=== PATIENT | female | born 1945 | race Caucasian/White ===

== ENCOUNTER 2016-06-12 13:41 | Inpatient (IN) | payer OTHER, MEDICARE ==
[~2016-06-12] VITALS: Ht 152.4 cm; Wt 40.0 kg
[~2016-06-12 13:41] MED LIST: DEPA250T2 PO; FLUO-1 PO; GLUCTAB PO; HALO1TAB25 PO
--- NOTE | 2016-06-12 13:48 | PD ---
HPI Chief Complaint: BA/Psych Time Seen by Provider: 13:48 Travel History International Travel<30 days: No Contact w/Intl Traveler<30days: No Traveled to known affect area: No PFSH Past Medical History Cancer: No Cardiovascular Problems: No Diabetes: Yes Endocrine: Yes Genitourinary: No Immune Disorder: No Implanted Vascular Access Dvce: No Musculoskeletal: No Neurologic: No Psychiatric: Yes (previous Tx) Reproductive: No Respiratory: No Schizophrenia: Yes Menopausal: Yes Past Surgical History Other Surgery: No Social History Alcohol Use: No Tobacco Use: No Substance Use: No Allergies-Medications (Allergen,Severity, Reaction): Coded Allergies: No Known Allergies (Unverified , 11/09/15) Per spouse. Reported Meds & Prescriptions Reported Meds & Active Scripts Active Reported Prozac (Fluoxetine HCl) 10 Mg Cap 10 Mg PO DAILY Haldol (Haloperidol) 2 Mg Tab 2 Mg PO BID Depakote 250 mg (Divalproex Sodium) 250 Mg Tab 500 Mg PO BID Metformin (Metformin HCl) 500 Mg Tab 500 Mg PO BIDPC Data Data Orders Complete Blood Count With Diff (06/12/16 13:53) Comprehensive Metabolic Panel (06/12/16 13:53) Urinalysis - C+S If Indicated (06/12/16 13:53) Electrocardiogram (06/12/16 13:53) Psych Screen (06/12/16 13:53) Drug Screen, Random Urine (06/12/16 13:53) Alcohol (Ethanol) (06/12/16 13:53) Ct Brain W/O Iv Contrast(Rout) (06/12/16 ) Karan May Jun 12, 2016 13:48
[2016-06-12 13:56] VITALS: BP 136/98; PULSE 110; PULSE 111; RESP 16; TEMP 97.5; O2SAT 97
--- NOTE | 2016-06-12 14:16 | PD ---
HPI . Alves Act Chief Complaint: Medical Clearance Time Seen by Provider: 13:48 Travel History International Travel<30 days: No Contact w/Intl Traveler<30days: No Traveled to known affect area: No History of Present Illness HPI Patient was brought to us by law enforcement under the Alves Act. She is not able to provide any history. She was reportedly found roaming the streets. She had been incontinent of urine. The police found her and took her to a psychiatric facility. She was not appropriate for their level of care and was subsequently sent here. PFSH Past Medical History Cancer: No Cardiovascular Problems: No Diabetes: Yes Endocrine: Yes Genitourinary: No Immune Disorder: No Implanted Vascular Access Dvce: No Musculoskeletal: No Neurologic: No Psychiatric: Yes (previous Tx) Reproductive: No Respiratory: No Schizophrenia: Yes ?: Not Menopausal: Yes Past Surgical History Other Surgery: No Social History Alcohol Use: No Tobacco Use: No Substance Use: No Allergies-Medications (Allergen,Severity, Reaction): Coded Allergies: No Known Allergies (Unverified , 06/12/16) Per spouse. Reported Meds & Prescriptions Reported Meds & Active Scripts Active Reported Prozac (Fluoxetine HCl) 10 Mg Cap 10 Mg PO DAILY Haldol (Haloperidol) 2 Mg Tab 2 Mg PO BID Depakote 250 mg (Divalproex Sodium) 250 Mg Tab 500 Mg PO BID Metformin (Metformin HCl) 500 Mg Tab 500 Mg PO BIDPC Review of Systems ROS Limitations: Psychotic, Language Barrier Physical Exam Narrative GENERAL: Elderly, Malian-speaking woman who does not appear to be in any acute distress. She is very thin. SKIN: Warm and dry. HEAD: Atraumatic. Normocephalic. EYES: Pupils equal and round. ENT: No nasal bleeding or discharge. Mucous membranes pink and moist. NECK: Trachea midline. Neck is supple. CARDIOVASCULAR: Regular rhythm, tachycardic rate. RESPIRATORY: No accessory muscle use. Lungs are clear with full air movement. GASTROINTESTINAL: Abdomen soft, non-tender, nondistended. MUSCULOSKELETAL: No obvious deformities. No edema. NEUROLOGICAL: Awake and alert. No obvious cranial nerve deficits. Motor grossly within normal limits. She speaks Malian. PSYCHIATRIC: Unable to evaluate due to language barrier. Data Data Last Documented VS Vital Signs Date Time Temp Pulse Resp B/P Pulse Ox O2 Delivery O2 Flow Rate FiO2 06/12/16 13:56 97.5 111 16 136/98 97 Room Air Orders Complete Blood Count With Diff (06/12/16 13:53) Comprehensive Metabolic Panel (06/12/16 13:53) Urinalysis - C+S If Indicated (06/12/16 13:53) Electrocardiogram (06/12/16 13:53) Psych Screen (06/12/16 13:53) Drug Screen, Random Urine (06/12/16 13:53) Alcohol (Ethanol) (06/12/16 13:53) Ct Brain W/O Iv Contrast(Rout) (06/12/16 ) Lipase (06/12/16 15:19) Sodium Chlor 0.9% 1000 Ml Inj (Ns 1000 M (06/12/16 15:30) Bedside Glucose WILLIE.AC&HS (06/12/16 15:19) Cath For Specimen (06/12/16 15:33) Urine Culture (06/12/16 15:25) Labs Laboratory Tests Test 06/12/16 06/12/16 14:25 15:25 White Blood Count 9.9 TH/MM3 Red Blood Count 5.21 MIL/MM3 Hemoglobin 16.2 GM/DL Hematocrit 48.6 % Mean Corpuscular Volume 93.2 FL Mean Corpuscular Hemoglobin 31.0 PG Mean Corpuscular Hemoglobin 33.3 % Concent Red Cell Distribution Width 13.4 % Platelet Count 251 TH/MM3 Mean Platelet Volume 9.3 FL Neutrophils (%) (Auto) 74.3 % Lymphocytes (%) (Auto) 18.9 % Monocytes (%) (Auto) 6.4 % Eosinophils (%) (Auto) 0.1 % Basophils (%) (Auto) 0.3 % Neutrophils # (Auto) 7.3 TH/MM3 Lymphocytes # (Auto) 1.9 TH/MM3 Monocytes # (Auto) 0.6 TH/MM3 Eosinophils # (Auto) 0.0 TH/MM3 Basophils # (Auto) 0.0 TH/MM3 CBC Comment DIFF FINAL Differential Comment Sodium Level 140 MEQ/L Potassium Level 4.8 MEQ/L Chloride Level 106 MEQ/L Carbon Dioxide Level 25.6 MEQ/L Anion Gap 8 MEQ/L Blood Urea Nitrogen 49 MG/DL Creatinine 1.27 MG/DL Estimat Glomerular Filtration 41 ML/MIN Rate Random Glucose 439 MG/DL Calcium Level 9.8 MG/DL Total Bilirubin 0.8 MG/DL Aspartate Amino Transf 46 U/L (AST/SGOT) Alanine Aminotransferase 152 U/L (ALT/SGPT) Alkaline Phosphatase 133 U/L Total Protein 8.3 GM/DL Albumin 3.8 GM/DL Lipase 404 U/L Ethyl Alcohol Level LESS THAN 3 MG/DL Urine Color YELLOW Urine Turbidity HAZY Urine pH 5.5 Urine Specific [place] 1.031 Urine Protein 30 mg/dL Urine Glucose (UA) 1000 mg/dL Urine Ketones 10 mg/dL Urine Occult Blood NEG Urine Nitrite NEG Urine Bilirubin NEG Urine Urobilinogen LESS THAN 2.0 MG/DL Urine Leukocyte Esterase SMALL Urine RBC 1 /hpf Urine WBC 5 /hpf Urine Squamous Epithelial 1 /hpf Cells Urine Bacteria MOD /hpf Urine Hyaline Casts 1 /lpf Microscopic Urinalysis Comment CULTURE INDICATED Urine Opiates Screen NEG Urine Barbiturates Screen NEG Urine Amphetamines Screen NEG Urine Benzodiazepines Screen NEG Urine Cocaine Screen NEG Urine Cannabinoids Screen NEG MDM Medical Decision Making Medical Screen Exam Complete: Yes Emergency Medical Condition: Yes Interpretation(s) EKG shows sinus tachycardia with a rate of 109. She does not have any old EKGs for comparison. She has right atrial enlargement, left atrial enlargement, left axis deviation and a left ventricular hypertrophy. Differential Diagnosis Differential diagnosis of altered mental status includes but is not limited to infection, electrolyte abnormality, neurological event, intoxication, psychosis. Narrative Course Patient presents via law enforcement for evaluation of altered mental status. She does have a psychiatric history. However, because of her age, she will be evaluated for possible head injury or urinary tract infection. CBC & BMP Diagram 06/12/16 14:25 UA shows moderate bacteria, small leukocyte esterase. This was a catheterized sample. This patient is not going to be medically clear for psychiatric admission. I have consulted with the resident service for admission. Last Impressions Head CT 06/12/16 0000 Signed Impressions: Service Date/Time: Sunday, June 12, 2016 14:33 - CONCLUSION: Unremarkable exam for age. David Senior MD She will be given IV fluids for the elevated sugar and the ELYSIA. Attempts have been made to contact some family without success. We do not know whether or not she has been recently compliant with her medications. Diagnosis Primary Impression: Hyperglycemia Additional Impressions: Acute kidney injury UTI (urinary tract infection) Qualified Code: N30.00 - Acute cystitis without hematuria Admitting Information Admitting Physician Requests: Admit Condition: Stable Kirstie Palm MD Jun 12, 2016 14:16
[2016-06-12 14:39] LABS: AUTOMATED NEUTROPHIL # 7.3 TH/MM3 (1.8-7.7); BASOPHIL % 0.3 % (0.0-2.0); EOSINOPHIL % 0.1 % (0.0-4.0); HEMATOCRIT 48.6 % (35.0-46.0); HEMO FLAGS DIFF FINAL; LYMPH % 18.9 % (9.0-44.0); LYMPHOCYTE # 1.9 TH/MM3 (1.0-4.8); MEAN CELL VOLUME 93.2 FL (80.0-100.0); MEAN CORPUSCULAR HGB CONC 33.3 % (32.0-36.0); MONO % 6.4 % (0.0-8.0); NEUT % 74.3 % (16.0-70.0); PLATELET COUNT 251 TH/MM3 (150-450); RED BLOOD COUNT 5.21 MIL/MM3 (4.00-5.30); RED CELL DISTRIBUTION WIDTH 13.4 % (11.6-17.2); WHITE BLOOD COUNT 9.9 TH/MM3 (4.0-11.0)
--- NOTE | 2016-06-12 14:42 | RADRPT ---
EXAM DATE/TIME: 06/12/2016 14:33 [facility] COMPARISON: No previous studies available for comparison. INDICATIONS : Altered mental status RADIATION DOSE: 26.93 CTDIvol (mGy) MEDICAL HISTORY : Diabetes mellitus type 1. SURGICAL HISTORY : None. ENCOUNTER: Initial ACUITY: 1 day PAIN SCALE: LOCATION: cranial TECHNIQUE: Multiple contiguous axial images were obtained of the head. Using automated exposure control and adj ustment of the mA and/or kV according to patient size, radiation dose was kept as low as reasonably a chievable to obtain optimal diagnostic quality images. FINDINGS: CEREBRUM: The ventricles are normal for age. No evidence of midline shift, mass lesion, hemorrhage or acute in farction. No extra-axial fluid collections are seen. POSTERIOR FOSSA: The cerebellum and brainstem are intact. The 4th ventricle is midline. The cerebellopontine angle i s unremarkable. EXTRACRANIAL: The visualized portion of the orbits is intact. SKULL: The calvaria is intact. No evidence of skull fracture. The patient is edentulous. CONCLUSION: Unremarkable exam for age. David Senior MD on June 12, 2016 at 14:40 Board Certified Radiologist. This report was verified electronically.
[2016-06-12 15:00] VITALS: PULSE 101; RESP 20; O2SAT 100
[2016-06-12 15:07] LABS: ALKALINE PHOSPHATASE 133 U/L (45-117); ALT (GPT) 152 U/L (10-53); ANION GAP 8 MEQ/L (5-15); AST (GOT) 46 U/L (15-37); BICARBONATE 25.6 MEQ/L (21.0-32.0); BLOOD UREA NITROGEN 49 MG/DL (7-18); CHLORIDE 106 MEQ/L (98-107); GLOMERULAR FILTRATION RATE 41 ML/MIN (>89); POTASSIUM 4.8 MEQ/L (3.5-5.1); SODIUM (NA) 140 MEQ/L (136-145); TOTAL BILIRUBIN ADULT 0.8 MG/DL (0.2-1.0)
[2016-06-12] MEDS ORDERED: SODIUM CHLOR 0.9% 1000 ML INJ 1,000 ML IV ONE (15:30)
[2016-06-12 15:54] LABS: BACTERIA, URINE MOD /hpf; BLOOD, URINE NEG (NEG); COMMENT (UR) CULTURE INDICATED; CULTURE IF INDICATED CULTURE INDICATED; GLUCOSE,URINE 1000 mg/dL (NEG); HYALINE CAST, URINE 1 /lpf (RARE); KETONE, URINE 10 mg/dL (NEG); NITRITE,URINE NEG (NEG); PH, URINE 5.5 (5.0-8.5); SQUAMOUS EPITHELIAL CELL URINE 1 /hpf (0-5); URINE COLOR YELLOW (YELLW/STRAW)
[2016-06-12 16:00] VITALS: BP 161/81; PULSE 100; RESP 16; O2SAT 100
[2016-06-12 16:03] LABS: AMPHETAMINE, URINE NEG (NEG); BARBITURATES, URINE NEG (NEG)
[2016-06-12 16:04] LABS: COCAINE, URINE NEG (NEG)
[2016-06-12] MEDS ORDERED: cefTRIAXone INJ 1,000 MG in SODIUM CHLORIDE 0.9% INJ 100 ML IV ONE (16:45)
[2016-06-12 17:00] VITALS: BP 180/80; PULSE 97; RESP 15; O2SAT 100
--- NOTE | 2016-06-12 17:48 | HHI.HP ---
HPI Service Family Medicine Primary Care Physician Unknown Admission Diagnosis hypoglycemia, UTI,ELYSIA Diagnoses: International Travel<30 Days: No Contact w/Intl Traveler<30days: No Known Affected Area: No History of Present Illness Patient is a 71-year-old female Gambian speaking patient with past medical history significant for psychosis NOS and diabetes who presents to [facility] via law enforcement under a Alves act. She was reportedly brought to [facility] with concerns of acute psychosis; however, due to acute nature of illness, she was subsequently referred to our hospital for eventual psychiatric admission. She is not accompanied by her . Video mixing engineer was attempted; however, patient did not participate in discussion aside from shaking head to deny any intention of hurting herself or others and denying any pain. Patient was unable to provide any other details regarding her medical condition or recent history. Review of EMR shows that the patient has previously been admitted for psychosis. She appears to have consistently been on Depakote 500 mg twice a day. Is unclear whether not the patient has continued to take this medication. It also appears that she was recently prescribed fluoxetine. She also has a history of diabetes for which review of EMR reveal she was on metformin. Her blood glucose has previously been well controlled with low-dose insulin sliding scale during prior inpatient psychiatric admissions. (Gee Pierce MD R3) Review of Systems ROS Limitations: Uncooperative, Psychotic (Gee Pierce MD R3) Past Family Social History Past Medical History Psychosis NOS Diabetes Past Surgical History Unable to provide history Reported Medications Reported Meds & Active Scripts Active Reported Prozac (Fluoxetine HCl) 10 Mg Cap 10 Mg PO DAILY Haldol (Haloperidol) 2 Mg Tab 2 Mg PO BID [id number] 250 Mg Tab 500 Mg PO BID Glucophage XR 24 HR (Metformin HCl) 500 Mg Tab 500 Mg PO BIDPC (Gee Pierce MD R3) Allergies: Coded Allergies: No Known Allergies (Unverified , 06/12/16) Per spouse. Family History Unable to provide history Social History Unable to provide history (Gee Pierce MD R3) Physical Exam Vital Signs Vital Signs Date Time Temp Pulse Resp B/P Pulse Ox O2 Delivery O2 Flow Rate FiO2 06/12/16 17:00 97 15 180/80 100 Room Air 06/12/16 15:00 101 20 100 Room Air 06/12/16 13:56 97.5 111 16 136/98 97 Room Air 06/12/16 13:56 97.5 110 16 136/98 Physical Exam GENERAL: Frail, disheveled appearing, woman laying in ER bed in no acute distress SKIN: No rashes, ecchymoses or lesions. Cool and dry. HEAD: Atraumatic. Normocephalic. No temporal or scalp tenderness. EYES: Pupils equal round and reactive. Extraocular motions intact. No scleral icterus. No injection or drainage. ENT: Nose without bleeding, purulent drainage or septal hematoma. Throat without erythema, tonsillar hypertrophy or exudate. Uvula midline. Airway patent. NECK: Trachea midline. No lymphadenopathy. Supple, nontender, no meningeal signs. CARDIOVASCULAR: Regular rate and rhythm without murmurs, gallops, or rubs. RESPIRATORY: Clear to auscultation. Breath sounds equal bilaterally. No wheezes , rales, or rhonchi. GASTROINTESTINAL: Abdomen soft, non-tender, nondistended. No hepato-splenomegaly , or palpable masses. No guarding. MUSCULOSKELETAL: Extremities without clubbing, cyanosis, or edema. No joint tenderness, effusion, or edema noted. No calf tenderness. MAEWD. NEUROLOGICAL: Awake and alert. Gambian speaking only. Cranial nerves II through XII intact. Motor and sensory grossly within normal limits. Five out of 5 muscle strength in all muscle groups. PSYCH: Speaking unrecognizable sentences. Appears to be oriented only to self. Denies SI/HI. Unable to assess VH/AH. Laboratory Laboratory Tests Test 06/12/16 06/12/16 14:25 15:25 White Blood Count 9.9 Red Blood Count 5.21 Hemoglobin 16.2 Hematocrit 48.6 Mean Corpuscular Volume 93.2 Mean Corpuscular Hemoglobin 31.0 Mean Corpuscular Hemoglobin 33.3 Concent Red Cell Distribution Width 13.4 Platelet Count 251 Mean Platelet Volume 9.3 Neutrophils (%) (Auto) 74.3 Lymphocytes (%) (Auto) 18.9 Monocytes (%) (Auto) 6.4 Eosinophils (%) (Auto) 0.1 Basophils (%) (Auto) 0.3 Neutrophils # (Auto) 7.3 Lymphocytes # (Auto) 1.9 Monocytes # (Auto) 0.6 Eosinophils # (Auto) 0.0 Basophils # (Auto) 0.0 CBC Comment DIFF FINAL Differential Comment Sodium Level 140 Potassium Level 4.8 Chloride Level 106 Carbon Dioxide Level 25.6 Anion Gap 8 Blood Urea Nitrogen 49 Creatinine 1.27 Estimat Glomerular Filtration 41 Rate Random Glucose 439 Calcium Level 9.8 Total Bilirubin 0.8 Aspartate Amino Transf 46 (AST/SGOT) Alanine Aminotransferase 152 (ALT/SGPT) Alkaline Phosphatase 133 Total Protein 8.3 Albumin 3.8 Lipase 404 Ethyl Alcohol Level LESS THAN 3 Urine Color YELLOW Urine Turbidity HAZY Urine pH 5.5 Urine Specific [place] 1.031 Urine Protein 30 Urine Glucose (UA) 1000 Urine Ketones 10 Urine Occult Blood NEG Urine Nitrite NEG Urine Bilirubin NEG Urine Urobilinogen LESS THAN 2.0 Urine Leukocyte Esterase SMALL Urine RBC 1 Urine WBC 5 Urine Squamous Epithelial 1 Cells Urine Bacteria MOD Urine Hyaline Casts 1 Microscopic Urinalysis Comment CULTURE INDICATED Urine Opiates Screen NEG Urine Barbiturates Screen NEG Urine Amphetamines Screen NEG Urine Benzodiazepines Screen NEG Urine Cocaine Screen NEG Urine Cannabinoids Screen NEG Date/Time Procedure Status Source Growth 06/12/16 15:25 Urine Culture Received Urine Clean Catch Pending (Gee Pierce MD R3) Result Diagram: 06/12/16 1425 06/12/16 1425 Imaging Last Impressions Head CT 06/12/16 0000 Signed Impressions: Service Date/Time: Sunday, June 12, 2016 14:33 - CONCLUSION: Unremarkable exam for age. David Senior MD (Gee Pierce MD R3) Septic Shock Reassessment Heart: Other (tachycardic) Lungs: Clear Skin: Warm Peripheral Pulses: Bounding Right Radial Bounding Left Radial Capillary Refill: Brisk (Gee Pierce MD R3) Assessment and Plan Assessment and Plan Patient is a 71-year-old female Gambian speaking patient with past medical history significant for diabetes and psychosis NOS requiring prior inpatient psychiatric admissions who presents under a Alves act with concerns for psychosis. Found to also have a UTI and significantly elevated blood sugar. Code Status Full code Discussed Condition With wdw Dr. Kevin MD (Gee Pierce MD R3) Attending Attestation The patient has been seen and examined. The chart and all resident notes have been reviewed. I agree that inpatient care is appropriate and that a two midnight stay is expected for the reasons documented in the resident history and physical. I have discussed this with the resident and certify the resident s order for inpatient admission. (Kirstie Brown MD) Problem List: (1) Schizophrenia Status: Acute Plan: Patient with history of psychosis NOS. Unclear if she has been taking her medication. Currently alert but uncooperative with exam. No focal neurologic findings. Normal head CT reassuring. Will proceed with following plan: * Admit to inpatient * Psychiatric consultation * Continue home Depakote 500 mg twice a day * Continue home Prozac 10 mg daily * Haldol 0.5 mg 3 times a day as needed for agitation/psychosis * 1-1 sitter (2) Diabetes mellitus, type 2 Status: Acute Plan: Blood sugar on admission 439. Blood sugar appears to previously been well-controlled with metformin or low-dose sliding scale when inpatient. * Begin with low-dose sliding scale * Hold home metformin until acute evaluation is completed * Consider adding additional long-acting insulin if clinically indicated (3) UTI (urinary tract infection) Status: Acute Plan: Urine shows small leukocyte esterase with moderate amount of bacteria. Patient denies any pain of any kind. Currently afebrile. * Begin Rocephin 1 mg daily * We'll follow culture sensitivities (4) Acute kidney injury Status: Acute Plan: Creatinine 1.27 today. Previous baseline appears to be <1. Likely due to dehydration. Patient is status post bolus of fluid in ED. * Begin maintenance fluids IV NS at 80 ML/HR * Repeat BMP in a.m. (5) Elevated liver enzymes Status: Acute Plan: AST 46, ALT 152, ALP 133 with lipase of 404. Abdominal examination is benign. Patient has a history of elevated AST and ALP in October. * Recommend initial evaluation with hepatitis profile * If patient develops abdominal pain, low threshold to obtain abdominal imaging (6) HTN (hypertension) Status: Acute Plan: BP elevated on admission to 180/80. No documented history of hypertension, though review of EMR reveals elevated pressures back in October. * Clonidine 0.1 mg as needed for BP greater than 160/90 * Consider long-acting antihypertensive if blood pressures remain consistently elevated (7) FEN/PPX Status: Acute Plan: FEN: - IV NS @ 80ml/hr - Monitor replace electrolytes as needed - Diabetic diet PPX: - Bilateral lower extremity SCDs - Zofran prn for nausea (Gee Pierce MD R3) Physician Certification 2 Midnight Certification Type: Admission for Inpatient Services Order for Inpatient Services The services are ordered in accordance with Medicare regulations or non- Medicare payer requirements, as applicable. In the case of services not specified as inpatient-only, they are appropriately provided as inpatient services in accordance with the 2-midnight benchmark. Estimated LOS (days): 2 days is the estimated time the patient will need to remain in the hospital, assuming treatment plan goals are met and no additional complications. Post-Hospital Plan: Other (specify) (Inpatient psych) (Gee Pierce MD R3) Problem Qualifiers (1) UTI (urinary tract infection): Qualified Code: N30.00 - Acute cystitis without hematuria Gee Pierce MD R3 Jun 12, 2016 17:48 Kirstie Brown MD Jun 13, 2016 15:51
[2016-06-12 18:00] VITALS: BP 168/79; PULSE 100; RESP 18; O2SAT 100
[2016-06-12] MEDS ORDERED: ACETAMINOPHEN 325 MG TAB PO PRN (18:00)
[2016-06-12] MEDS ORDERED: cloNIDine HCL 0.1 MG TAB PO PRN (18:00)
[2016-06-12] MEDS ORDERED: ONDANSETRON HCL 4 MG/2 ML VIAL IVP PRN (18:00)
[2016-06-12] MEDS ORDERED: NALOXONE HCL 0.4 MG/ML AMP IV PRN (18:00)
[2016-06-12] MEDS ORDERED: SODIUM CHLORIDE 0.9% FLUSH 5 ML FLUSH FLUSH PRN (18:00)
[2016-06-12] MEDS ORDERED: HALOPERIDOL 0.5 MG TAB PO PRN (18:00)
[2016-06-12] MEDS ORDERED: GLUCAGON 1 MG/ML VIAL OTHER PRN (18:00)
[2016-06-12] MEDS ORDERED: DEXTROSE 50% IN WATER 50 ML VIAL(D50) IV PUSH PRN (18:00)
[2016-06-12] MEDS: SODIUM CHLOR 0.9% 1000 ML INJ 1,000 ML IV SCH (20:00)
[2016-06-12] MEDS: DIVALPROEX DR 500 MG TABEC PO SCH (20:00)
[2016-06-12] MEDS: INSULIN ASPART SUPPLEMENTAL SCALE SQ SCH (20:00)
[2016-06-12] MEDS: SODIUM CHLORIDE 0.9% FLUSH 5 ML FLUSH FLUSH SCH (20:00)
[2016-06-12 23:00] VITALS: BP 160/72; PULSE 98; RESP 18; O2SAT 100
[2016-06-13 02:47] VITALS: BP 176/81; PULSE 93; RESP 18; TEMP 97.6; O2SAT 98
[2016-06-13 05:57] VITALS: BP 166/78; PULSE 90; RESP 18; TEMP 96.8; O2SAT 94
[2016-06-13] MEDS: SODIUM CHLOR 0.9% 1000 ML INJ 1,000 ML IV SCH (06:24)
[2016-06-13] MEDS: INSULIN ASPART SUPPLEMENTAL SCALE SQ SCH ×2 (06:25→11:00)
[2016-06-13 07:03] LABS: AUTOMATED NEUTROPHIL # 6.1 TH/MM3 (1.8-7.7); BASOPHIL % 0.1 % (0.0-2.0); EOSINOPHIL % 0.5 % (0.0-4.0); HEMATOCRIT 38.7 % (35.0-46.0); HEMO FLAGS DIFF FINAL; LYMPH % 23.4 % (9.0-44.0); MEAN CELL VOLUME 91.3 FL (80.0-100.0); MEAN CORPUSCULAR HEMOGLOBIN 31.3 PG (27.0-34.0); MEAN CORPUSCULAR HGB CONC 34.2 % (32.0-36.0); MONO % 5.1 % (0.0-8.0); NEUT % 70.9 % (16.0-70.0); PLATELET COUNT 202 TH/MM3 (150-450); RED BLOOD COUNT 4.24 MIL/MM3 (4.00-5.30); RED CELL DISTRIBUTION WIDTH 13.5 % (11.6-17.2); WHITE BLOOD COUNT 8.6 TH/MM3 (4.0-11.0)
[2016-06-13 07:30] LABS: BICARBONATE 25.4 MEQ/L (21.0-32.0); POTASSIUM 3.9 MEQ/L (3.5-5.1)
[2016-06-13 07:46] VITALS: BP 162/78; PULSE 90; RESP 20; TEMP 98.1; O2SAT 97
[2016-06-13] MEDS: FLUoxetine HCL 10 MG CAP PO SCH ×2 (09:00→10:55)
[2016-06-13] MEDS: DIVALPROEX DR 500 MG TABEC PO SCH ×2 (09:00→10:55)
[2016-06-13] MEDS ORDERED: cefTRIAXone INJ 1,000 MG in SODIUM CHLORIDE 0.9% INJ 100 ML IV SCH (09:00)
[2016-06-13] MEDS: SODIUM CHLORIDE 0.9% FLUSH 5 ML FLUSH FLUSH SCH (09:00)
--- NOTE | 2016-06-13 09:16 | HHI.FPPN ---
Subjective Subjective Patient seen and examined. Case reviewed and discussed Please refer to resident H&P for further details regarding HPI, ROS, PMH, SrugHx , FH and SocHx In summary, patient is a 71yoFwith a history of DM and psychosis presenting under Alves Act. Patient is Azeri-speaking. Overnight, glucose control improved. Patient is seen resting in her hospital bed, she offers no complaints but is speaking nonsensically in Azeri. [facility] Objective Objective Last Impressions Head CT 06/12/16 0000 Signed Impressions: Service Date/Time: Sunday, June 12, 2016 14:33 - CONCLUSION: Unremarkable exam for age. David Senior MD Laboratory Tests - Abnormals Test 06/12/16 06/12/16 06/13/16 14:25 15:25 06:13 Hemoglobin 16.2 GM/DL Hematocrit 48.6 % Neutrophils (%) (Auto) 74.3 % 70.9 % Blood Urea Nitrogen 49 MG/DL 32 MG/DL Creatinine 1.27 MG/DL Estimat Glomerular Filtration 41 ML/MIN 68 ML/MIN Rate Random Glucose 439 MG/DL 228 MG/DL Aspartate Amino Transf 46 U/L (AST/SGOT) Alanine Aminotransferase 152 U/L (ALT/SGPT) Alkaline Phosphatase 133 U/L Total Protein 8.3 GM/DL Lipase 404 U/L Urine Turbidity HAZY Urine Protein 30 mg/dL Urine Glucose (UA) 1000 mg/dL Urine Ketones 10 mg/dL Urine Leukocyte Esterase SMALL Urine Bacteria MOD /hpf Sodium Level 148 MEQ/L Chloride Level 115 MEQ/L Vital Signs 06/12/16 06/12/16 06/12/16 06/12/16 13:56 13:56 15:00 16:00 Temp 97.5 97.5 Pulse 110 111 101 100 Resp 16 16 20 16 B/P 136/98 136/98 161/81 Pulse Ox 97 100 100 O2 Delivery Room Air Room Air Room Air 06/12/16 06/12/16 06/12/16 06/13/16 17:00 18:00 23:00 02:47 Temp 97.6 Pulse 97 100 98 93 Resp 15 18 18 18 B/P 180/80 168/79 160/72 176/81 Pulse Ox 100 100 100 98 O2 Delivery Room Air Room Air Room Air 06/13/16 06/13/16 05:57 07:46 Temp 96.8 98.1 Pulse 90 90 Resp 18 20 B/P 166/78 162/78 Pulse Ox 94 97 INTAKE & OUTPUT 06/13/16 07:00 Intake Total 1200 ml Balance 1200 ml Physical exam GENERAL: Thin frail female resting in bed, awake and alert, confused SKIN: Warm and dry. No rashes HEAD: Normocephalic. Atraumatic EYES: No scleral icterus. No injection or drainage. ENT: OP clear. MMM NECK: Supple, trachea midline. No JVD or lymphadenopathy. CARDIOVASCULAR: Regular rate and rhythm without audible murmurs, gallops, or rubs. RESPIRATORY: Breath sounds equal and clear to auscultation bilaterally. No accessory muscle use. GASTROINTESTINAL: Abdomen soft, non-tender, nondistended. Thin. MUSCULOSKELETAL: No cyanosis, or edema. No calf tenderness BACK: Nontender without obvious deformity. No CVA tenderness. Neuro: Confused, awake. Moves all extremities well Assessment Assessment 71-year-old female admitted with Alves act, psychosis Hyperglycemia Transaminitis Uncontrolled diabetes Acute kidney injury Dehydration Hypernatremia UTI PLAN PLAN Psychiatric consultation, likely will be transferred to [facility] psych unit Empiric antibiotic therapy with Rocephin UA with urine culture, follow up culture results Trend Accu-Cheks, sliding scale coverage as needed Will consider resuming home metformin Trend BMP and LFTs If LFTs stay elevated, consider right upper quadrant ultrasound IV fluid resuscitation for dehydration Further antipsychotic management per psych Patient seen and examined. Case reviewed and discussed with the resident team. Agree with plan of care as discussed with me and documented in the resident note. Addendum: Patient seen by Dr. Giles, psychiatry will transfer patient to [facility] psych unit. Please feel free to consult family medicine service once arrived to [facility] psych unit for assistance with medical management. Kirstie Brown MD Jun 13, 2016 09:16
[2016-06-13 10:21] LABS: ALT (GPT) 126 U/L (10-53); ANION GAP 10 MEQ/L (5-15); AST (GOT) 63 U/L (15-37); BICARBONATE 23.2 MEQ/L (21.0-32.0); BLOOD UREA NITROGEN 32 MG/DL (7-18); CHLORIDE 117 MEQ/L (98-107); GLOMERULAR FILTRATION RATE 69 ML/MIN (>89); POTASSIUM 3.9 MEQ/L (3.5-5.1); SODIUM (NA) 150 MEQ/L (136-145)
[2016-06-13 10:23] LABS: ALKALINE PHOSPHATASE 96 U/L (45-117); TOTAL BILIRUBIN ADULT 0.6 MG/DL (0.2-1.0)
--- NOTE | 2016-06-13 10:48 | EKG ---
Date Performed: 06/12/2016 Time Performed: 14:13:32 PTAGE: 71 years EKG: SINUS TACHYCARDIA RIGHT ATRIAL ABNORMALITY LEFT VENTRICULAR HYPERTROPHY WITH REPOLARIZATION CHANGES POOR R-WAVE PROGRESSION ABNORMAL ECG NO PREVIOUS TRACING DOCTOR: Richard Clifton Interpretating Date/Time 06/13/2016 10:46:46
[2016-06-13 11:01] VITALS: BP 150/90
[2016-06-13 11:34] VITALS: BP 167/86; PULSE 88; RESP 22; TEMP 98.9; O2SAT 95
== END 2016-06-13 12:55 | DRG 638 ==
LOC: NEPA 13:41 → NEDA 17:02 → NEDH 21:02 → NEPHCDU 06-13 02:30
PROVIDERS: ADMIT Family Medicine; ATTEND Family Medicine
DX: E11.65 Type 2 diabetes mellitus with hyperglycemia (principal); E87.0 Hyperosmolality and hypernatremia; N17.9 Acute kidney failure, unspecified; N30.00 Acute cystitis without hematuria; E86.0 Dehydration; I10 Essential (primary) hypertension; F20.9 Schizophrenia, unspecified
CPT/HCPCS: 70450; 80048; 80053; 80074; 80164; 80307; 80320; 81001; 82948; 83690; 85025; 87077; 87086; 87186; 93005; 96360; J0696; J1815; J7030; P9612

== ENCOUNTER 2016-06-13 10:00 | Inpatient (IN) | payer OTHER, MEDICARE ==
[2016-06-13 12:30] VITALS: BP 190/84; PULSE 99; RESP 16; TEMP 98.2; O2SAT 98
[2016-06-13] MEDS ORDERED: LORazepam 2 MG/ML VIAL IM PRN ×2 (13:45)
[2016-06-13] MEDS ORDERED: risperiDONE 1 MG TAB PO SCH (13:45)
[2016-06-13] MEDS ORDERED: MAGNESIUM HYDROXIDE SUSP 30 ML CUP PO PRN ×2 (13:45→14:45)
[2016-06-13] MEDS ORDERED: LORazepam 1 MG TAB PO SCH (14:00)
--- NOTE | 2016-06-13 14:18 | HHI.HP ---
Provisional Diagnosis Admission Date Jun 13, 2016 at 10:00 [place] I. Unspecified psychosis, R/O schizophrenia acute exacerbation [place] II. Deferred [place] III. HTN, DM [place] IV. Poor family support [place] V. 35 Certification of Person's Competence To Provide Express and Informed Consent I have personally examined Marcie Catalan , a person being served at [facility] on, Jun 13, 2016 14:02. Express and informed consent means consent voluntarily given in writing, by a competent person, after sufficient explanation and disclosure of the subject matter involved to enable the person to make a knowing and willful decision without any element of force, fraud, deceit, duress, or other form of constraint or coercion. This person is 18 years of age or older, is not now known to be incompetent to consent to treatment with a guardian advocate, and does not have a health care surrogate or proxy currently making medical treatment decisions. I have found this person to be one of the following: [] Competent to provide express and informed consent, as defined above, for voluntary admission to this facility and is competent to provide express and informed consent for treatment. He/she has the consistent capacity to make well reasoned, willful, and knowing decisions concerning his or her medical or mental health treatment. The person fully and consistently understands the purpose of the admission for examination/placement and is fully capable of personally exercising all rights assured [place] [X] Incompetent to provide express and informed consent to voluntary admission, and this is incompetent to provide express and informed consent to treatment. The person must be transferred to involuntary status and a petition for a guardian advocate filed with the Circuit Court. [] Refusing to provide express and informed consent to voluntary admission but is competent to provide express and informed consent for treatment. The person must be discharged or transferred to involuntary status. Form shall be completed within 24 hours of a person's arrival at the receiving facility and filed in the clinical record of each person: 1. Admitted on a voluntary basis 2. Permitted to provide express and informed consent to his/her own treatment 3. Allowed to transfer from involuntary to voluntary status 4. Prior to permitting a person to consent to his or her own treatment after having been previously found incompetent to consent to treatment. History of Present Illness Capacity: Lacks Capacity HPI The patient is a 71 year-old woman, Anguillan speaking, , apparently domiciled with her in [place], with past psychiatric history of for psychosis NOS, Schizophrenia, one documented hospitalization at [facility] in 2013 due to psychosis, she was to stabilize with Depakote and Risperdal then, one ER visit in October 2015, but discharged next day, medical history of diabetes or hypertension, who presents to [facility] via law enforcement under a Alves act. She was reportedly brought to [facility] with concerns of acute psychosis; however, due to acute nature of illness, she was subsequently referred to our hospital for eventual psychiatric admission. Patient was hold in the observation area of the ER due to UTI, increased blood pressure, elevated white blood cells, elevated blood sugar, ELYSIA and altered mental status. She had a brain CT scan without acute abnormal findings at this moment. Patient was evaluated in the med/psych unit alone with nurse in charge Riddhi, no collateral information available at this moment. On psychiatric evaluation patient is non-cooperative, she seems to be internally preoccupied, guarded, paranoid, she refuses to answer the questions and seems to be selectively mute. However, in the few occasions she decided to answer question she voices unintelligible words that don't make any sense either in Burkinan or Anguillan. She did say "my is crazy crazy crazy" and also she states in Anguillan "I don't like your shows, they are ugly". In spite of persistent reassurance and redirection patient refuses to cooperate. She is not agitated, no hyperactive, she does not seems to be catatonic, she has an irritable and angry affect, rather than flat and restricted. Tried to contact her for collateral information, he was called twice to the documented in the charge telephone number, but the person to answer the telephone and stated that this is a wrong number. Review of Systems ROS Limitations: Uncooperative Other The patient does not have any somatic complaints Past Psych History Psychological trauma history Unknown Substance Abuse History Drugs/Alcohol past 12 months Unknown and this time, based in previous records she doesn't have any history of drug and alcohol use disorder Past Family Social History Coded Allergies: No Known Allergies (Unverified , 06/12/16) Per spouse. Reported Medications Fluoxetine HCl (Prozac)10 Mg Cap10 Mg PO DAILY 11/09/15 Haloperidol (Haldol)2 Mg Tab2 Mg PO BID 10/03/13 [id number] M1 250 Mg [id number] Mg PO BID 08/11/13 Metformin XR 24 HR (Glucophage XR 24 HR)500 Mg [id number] Mg PO BIDPC 08/11/13 Current Medications Medications (Trade) Dose Ordered Sig/Dary Route Start Time Stop Time Status Last Admin (Ativan) 1 mg Q6H PRN PO 06/13/16 13:45 (Ativan Inj) 1 mg Q6H PRN IM 06/13/16 13:45 (Ativan) 0.5 mg Q12H PRN PO 06/13/16 13:45 (Ativan Inj) 0.5 mg Q12H PRN IM 06/13/16 13:45 (Tylenol) 650 mg Q4H PRN PO 06/13/16 13:45 (Milk Of Magnesia Liq) 30 ml DAILY PRN PO 06/13/16 13:45 (Mag-Al Plus Susp Liq) 30 ml Q6H PRN PO 06/13/16 13:45 (Ativan) 1 mg Q8HR PO 06/13/16 14:00 (risperDAL) 1 mg Q12HR PO 06/13/16 13:45 (Depakote Er) 500 mg BID PO 06/13/16 21:00 Family History Unknown Social History From previous record, The patient is from [place], she lives with her in [place], she is only Anguillan-speaking Mental Status Examination Patient is calm and cooperative for the assessment of mental status exam Speech: Other (mute) Assessment & Plan Problem List: (1) Schizophrenia Assessment & Plan: The patient is a 71 year-old woman, Anguillan speaking, , apparently domiciled with her in [place], with past psychiatric history of for psychosis NOS, Schizophrenia, one documented hospitalization at [facility] in 2013 due to psychosis, she was to stabilize with Depakote and Risperdal then, one ER visit in October 2015, but discharged next day, medical history of diabetes or hypertension, who presents to [facility] via law enforcement under a Alves act due to psychotic behavior. On psychiatric evaluation patient is non-cooperative, she is guarded , selectively mute, not providing any significant information for the psychiatric assessment at this moment. Unfortunately, No collateral information is available. The patient does not seems to be catatonic, she is definitely has negativism, but no rigidity, no echolalia, achopraxia, posturism , rigidity observed. In the few sentences that the patient voices she is disorganized, illogical and some neologisms are expressed. At this point is difficult to define if patient is psychotic, delirious, cognitively impaired or maybe is all at the same time. Patient meets criteria for involuntary psychiatric admission for safety and stabilization, she most probably will be unable to survive in the community in this condition. chute worker intervention to complete a psychosocial assessment and to try to get collateral information. Continue frequent reorientation, reassurance and redirection. Will consult hospitalist for underlying medical conditions and also will consult psychiatry for second opinion. We will start Risperdal 1 mg twice a day and Depakote 500 mg twice a day. Also would order Haldol 2 mg IM every 8 hours when necessary aggressive behavior and agitation. ICD Code: F20.9 Assessment & Plan Estimated LOS: days Problem Qualifiers (1) Schizophrenia: Qualified Code: F20.9 - Schizophrenia, unspecified type James Herbert MD Jun 13, 2016 14:18
[2016-06-13] MEDS ORDERED: cloNIDine HCL 0.1 MG TAB PO PRN (15:00)
[2016-06-13] MEDS ORDERED: GLUCAGON 1 MG/ML VIAL OTHER PRN (15:00)
[2016-06-13] MEDS ORDERED: DEXTROSE 50% IN WATER 50 ML VIAL(D50) IV PUSH PRN (15:00)
--- NOTE | 2016-06-13 15:56 | PD.CONS ---
HPI Service [facility] Consult Requested By Psychiatry team Reason for Consult Medical management Primary Care Physician Unknown Diagnoses: History of Present Illness Patient is a 71-year-old female with primary medical history of psychosis, diabetes who came into the hospital under Alves act. As per report, she was put to [facility] with concerns of acute psychosis, but due to acute nature of illness she was subsequently referred to our hospital for psychiatric admission. Unknown if patient is compliant with taking Depakote as she was previously seen for psychosis. Further work up revealed patient to have urinary tract infection and significantly elevated blood sugar. Patient is now admitted to inpatient medical psychiatric unit. Consulted for medical management. Patient seen today. Cuban speaking. Confuse and does not respond to questions and commands. Appears comfortable. Unable to provide any medical information. Review of Systems ROS Limitations: Poor Historian, Other (confuse) Past Family Social History Allergies: Coded Allergies: No Known Allergies (Unverified , 06/12/16) Per spouse. Past Medical History Chart reviewed Diabetes Psychosis Dementia Schizophrenia Past Surgical History Chart reviewed No surgical history Reported Medications Prozac (Fluoxetine HCl) 10 Mg Cap 10 Mg PO DAILY Haldol (Haloperidol) 2 Mg Tab 2 Mg PO BID [id number] M1 250 Mg Tab 500 Mg PO BID Glucophage XR 24 HR (Metformin HCl) 500 Mg Tab 500 Mg PO BIDPC Active Ordered Medications Current Medications Medications (Trade) Dose Ordered Sig/Dary Route Start Time Stop Time Status Last Admin (Ativan) 1 mg Q6H PRN PO 06/13/16 13:45 (Ativan Inj) 1 mg Q6H PRN IM 06/13/16 13:45 (Ativan) 0.5 mg Q12H PRN PO 06/13/16 13:45 (Ativan Inj) 0.5 mg Q12H PRN IM 06/13/16 13:45 (Tylenol) 650 mg Q4H PRN PO 06/13/16 13:45 (Mag-Al Plus Susp Liq) 30 ml Q6H PRN PO 06/13/16 13:45 (risperDAL) 1 mg Q12HR PO 06/13/16 13:45 Hold (Depakote Er) 500 mg BID PO 06/13/16 21:00 (Milk Of Magnesia Liq) 30 ml DAILY PRN PO 06/13/16 14:45 (D50w (Vial) Inj) 25 ml UNSCH PRN IV PUSH 06/13/16 15:00 (Glucagon Inj) 1 mg UNSCH PRN OTHER 06/13/16 15:00 (Bactrim Ds 800-160 Mg) 1 tab Q12HR PO 06/14/16 09:00 06/19/16 08:59 (Catapres) 0.1 mg Q6H PRN PO 06/13/16 15:00 Family History Unable to provide family history. Social History No report of alcohol use, Tobacco use, or Illicit drug use Physical Exam Physical Exam GENERAL: This is a thin elderly appearing, elderly patient, in no apparent distress. SKIN: No rashes, ecchymoses or lesions. Cool and dry. HEAD: Atraumatic. Normocephalic. No temporal or scalp tenderness. EYES: Pupils equal round and reactive. Extraocular motions intact. No scleral icterus. No injection or drainage. ENT: Nose without bleeding. Throat without erythema. Uvula midline. Airway patent. NECK: Trachea midline. No JVD or lymphadenopathy. Supple, nontender, no meningeal signs. CARDIOVASCULAR: Regular rate and rhythm without murmurs, gallops, or rubs. RESPIRATORY: Clear to auscultation. Breath sounds equal bilaterally. No wheezes , rales, or rhonchi. GASTROINTESTINAL: Abdomen soft, non-tender, nondistended. No hepato-splenomegaly , or palpable masses. No guarding. MUSCULOSKELETAL: Extremities without clubbing, cyanosis, or edema. No joint tenderness, effusion, or edema noted. No calf tenderness. Negative Homans sign bilaterally. NEUROLOGICAL: Awake and alert. Confuse. SZYMANSKI. Normal speech. Assessment and Plan Problem List: (1) Schizophrenia ICD Code: F20.9 Status: Acute (2) HTN (hypertension) ICD Code: I10 Status: Chronic (3) Acute kidney injury ICD Code: N17.9 Status: Acute (4) Elevated liver enzymes ICD Code: R74.8 Status: Acute (5) Diabetes mellitus, type 2 ICD Code: E11.9 Status: Chronic (6) UTI (urinary tract infection) ICD Code: N39.0 Status: Acute Assessment and Plan Patient is a 71-year-old female who came into the hospital under Alves act. As per report, she was put to [facility] with concerns of acute psychosis, she was subsequently referred to our hospital for psychiatric admission. Unknown if patient is compliant with taking Depakote as she was previously seen for psychosis. Patient is now admitted to inpatient medical psychiatric unit. Consulted for medical management. Dementia, schizophrenia, psychosis - management by psychiatry team DM 2 - patient previously on metformin 500 mg twice a day at home. Was not restarted secondary to acute kidney injury which is now resolving. However patient still continued risk for acidosis secondary to poor by mouth intake. - Continue insulin sliding scale. If unable to restart metformin may benefit from Januvia. - Monitor Accu-Cheks. Monitor for hypoglycemia. - Check hemoglobin A1c. Hypernatremia - possibly caused by IV fluid infusion. DC and S IV fluids. - Encourage by mouth intake - Recheck sodium tomorrow Transaminitis, elevated liver enzymes - history of elevated AST and ALT. Abdominal examination benign. Possibly chronic. - Hepatitis panel negative - Avoid hepatotoxins. - If worsening, imaging studies can be done. Elevated lipase - 404. - recheck in few days. Urinary tract infection - was started on Rocephin in inpatient. Follow-up cultures, pending - Switched to Bactrim end date 06/19/2016 - Encourage by mouth fluid intake HTN - elevated BP 150s to 160s, and clonidine when necessary. - Will start low-dose lisinopril 5mg daily DVT prop early ambulation Thank you for this consultation. We will follow patient with you. Written by Nina Cruz, acting as scribe for Dr. Hall on 06/13/16 at 17: 32. The documentation accurately reflects the work performed [id number] by me on at 19:25. Code Status Full code Discussed Condition With Patient, nursing Problem Qualifiers (1) Schizophrenia: Qualified Code: F20.9 - Schizophrenia, unspecified type Nina Nelson Jun 13, 2016 15:56 Anselmo Hall MD Jun 13, 2016 19:25
[2016-06-13] MEDS: INSULIN ASPART SUPPLEMENTAL SCALE SQ SCH ×2 (16:00→20:58)
[2016-06-13] MEDS ORDERED: LISINOPRIL 5 MG TAB PO SCH (18:00)
[2016-06-13 20:00] VITALS: BP 176/84; PULSE 102; RESP 18
[2016-06-13 20:05] VITALS: BP 190/84
[2016-06-13 23:45] VITALS: BP 176/84; PULSE 103; RESP 20
[2016-06-14] MEDS ORDERED: DEXTROSE 5% IN WATE 1000ML INJ 1,000 ML IV SCH (01:00)
[2016-06-14] MEDS ORDERED: ENALAPRILAT 2.5 MG/2 ML VIAL IV PUSH ONE (06:00)
[2016-06-14 06:01] VITALS: BP_SYST 193; BP_SYST 202; BP_DIAS 94; BP_DIAS 99; PULSE 113; RESP 17; TEMP 97.9; O2SAT 97
[2016-06-14] MEDS: INSULIN ASPART SUPPLEMENTAL SCALE SQ SCH ×5 (06:21→21:56)
[2016-06-14 06:31] VITALS: BP 167/78; PULSE 105; RESP 16; O2SAT 96
[2016-06-14 08:15] LABS: ALKALINE PHOSPHATASE 112 U/L (45-117); ALT (GPT) 122 U/L (10-53); ANION GAP 13 MEQ/L (5-15); AST (GOT) 60 U/L (15-37); BLOOD UREA NITROGEN 19 MG/DL (7-18); CHLORIDE 107 MEQ/L (98-107); CREATINE KINASE 56 U/L (26-192); GLOMERULAR FILTRATION RATE 70 ML/MIN (>89); HDL CHOLESTEROL 49.3 MG/DL (40.0-60.0); LDL CHOLESTEROL 146 MG/DL (0-99); POTASSIUM 3.1 MEQ/L (3.5-5.1); SODIUM (NA) 142 MEQ/L (136-145); TOTAL BILIRUBIN ADULT 0.9 MG/DL (0.2-1.0)
[2016-06-14] MEDS ORDERED: SULFAMETHOXAZOLE-TRIMETHOPRIM DS 800-160 MG TAB PO SCH (09:00)
[2016-06-14 09:45] VITALS: BP 96/55; PULSE 84; RESP 16; TEMP 97.3; O2SAT 97
[2016-06-14] MEDS ORDERED: POTASSIUM CHLORIDE 10 MEQ CONTROLLED RELEASE TAB PO ONE (10:00)
[2016-06-14] MEDS ORDERED: POTASSIUM CL 40 MEQ/30 ML LIQ UDC PO ONE (10:00)
[2016-06-14] MEDS ORDERED: POTASSIUM CHLORIDE 20 MEQ CONTROLLED RELEASE TAB PO ONE (10:00)
[2016-06-14] MEDS ORDERED: D5-1/2 NS + KCL 20 MEQ INJ 1,000 ML IV SCH (10:00)
[2016-06-14] MEDS ORDERED: SODIUM CHLOR 0.9% 250 ML INJ 250 ML IV PRN (10:00)
--- NOTE | 2016-06-14 11:41 | HHI.PR ---
Subjective Remarks I'll of visit dementia, psychosis, failure to thrive, UTI. Patient seen today. As per RN, patient was very agitated and restless this morning, banging her legs on the bed. She was given Ativan. Patient is sedated on exam. Patient also is not eating or drinking. She was started on IV fluids last night. Staff also states that they cannot contact patient's family members. Objective Vitals Vital Signs Date Time Temp Pulse Resp B/P Pulse Ox O2 Delivery O2 Flow Rate FiO2 06/14/16 09:45 97.3 84 16 96/55 97 06/14/16 06:31 105 16 167/78 96 06/14/16 06:01 97.9 113 17 202/94 97 193/99 06/13/16 23:45 103 20 176/84 06/13/16 20:05 190/84 06/13/16 12:30 98.2 99 16 190/84 98 I/O 06/13/16 06/13/16 06/13/16 06/14/16 06/14/16 06/14/16 07:00 15:00 23:00 07:00 15:00 23:00 Intake Total 1000 ml Balance 1000 ml Intake Oral 0 ml IV Total 1000 ml # Voids 4 # Bowel Movements 0 Result Diagram: 06/14/16 0735 Objective Remarks GENERAL: This is a thin elderly appearing, elderly patient, in no apparent distress. SKIN: No rashes, ecchymoses or lesions. Cool and dry. HEAD: Atraumatic. Normocephalic. No temporal or scalp tenderness. EYES: Extraocular motions intact. No scleral icterus. No injection or drainage. ENT: Nose without bleeding. Throat without erythema. Uvula midline. Airway patent. NECK: Trachea midline. No JVD or lymphadenopathy. Supple, nontender, no meningeal signs. CARDIOVASCULAR: Regular rate and rhythm without murmurs, gallops, or rubs. RESPIRATORY: Clear to auscultation. Breath sounds equal bilaterally. No wheezes , rales, or rhonchi. GASTROINTESTINAL: Abdomen soft, non-tender, nondistended. Active bowel sounds 4. MUSCULOSKELETAL: Extremities without clubbing, cyanosis, or edema. No joint tenderness, effusion, or edema noted. No calf tenderness. Negative Homans sign bilaterally. NEUROLOGICAL: Sedated. A/P Problem List: (1) Schizophrenia ICD Code: F20.9 Status: Acute (2) HTN (hypertension) ICD Code: I10 Status: Chronic (3) Acute kidney injury ICD Code: N17.9 Status: Acute (4) Elevated liver enzymes ICD Code: R74.8 Status: Acute (5) Diabetes mellitus, type 2 ICD Code: E11.9 Status: Chronic (6) UTI (urinary tract infection) ICD Code: N39.0 Status: Acute Assessment and Plan Patient is a 71-year-old female who came into the hospital under Alves act. As per report, she was put to [facility] with concerns of acute psychosis, she was subsequently referred to our hospital for psychiatric admission. Unknown if patient is compliant with taking Depakote as she was previously seen for psychosis. Patient is now admitted to inpatient medical psychiatric unit. Consulted for medical management. Dementia, schizophrenia, psychosis - management by psychiatry team DM 2 - patient previously on metformin 500 mg twice a day at home. Was not restarted secondary to acute kidney injury which is now resolving. However patient still continued risk for acidosis secondary to poor by mouth intake. - Continue insulin sliding scale. Patient is not eating. Continue with insulin sliding scale instead of restarting oral hypoglycemics. - Monitor Accu-Cheks. Monitor for hypoglycemia. - Check hemoglobin A1c. Hypernatremia - possibly caused by IV fluid infusion. DC NS IV fluids. Patient was started D5 IV, will change to D5 half NS +20 MEQ K+ - Encourage by mouth intake - Recheck sodium 142. Transaminitis, elevated liver enzymes - history of elevated AST and ALT. Abdominal examination benign. Possibly chronic. - Hepatitis panel negative - Avoid hepatotoxins. - If worsening, imaging studies can be done. Elevated lipase - 404. - recheck in few days. Urinary tract infection - was started on Rocephin in inpatient. Follow-up cultures, pending - Switched to Bactrim end date 06/19/2016. DC Bactrim from now as patient is not taking by mouth medications. Will start Rocephin 2 days - Encourage by mouth fluid intake HTN - elevated BP 150s to 160s, and clonidine when necessary. - Will start low-dose lisinopril 5mg daily. Patient is not taking anything by mouth. - Monitor BP trend Hyperlipidemia - ASCVD risk increase secondary to diabetes, hypertension. However, liver enzymes are elevated and patient right now has poor by mouth intake. - Will hold off on starting patient on statin medication. We will discuss with family members if they are available risk and benefits of medication use. DVT prop early ambulation Written by Nina Cruz, acting as scribe for Dr. Hall on 06/14/16 at 10:30. The documentation accurately reflects the work performed [id number] by me on at 18:55. Problem Qualifiers (1) Schizophrenia: Qualified Code: F20.9 - Schizophrenia, unspecified type Nina Nelson Jun 14, 2016 11:41 Anselmo Hall MD Jun 14, 2016 18:55
--- NOTE | 2016-06-14 14:48 | HHI.PYPN ---
Subjective Remarks Patient was seen today for psychiatric evaluation, patient was unable to provide significant at useful information to the reevaluation due to level of sedation, patient was recently medicated with Ativan due to agitation, but she continues to be internally preoccupied selectively mute. Review of Systems Other No significant changes since 06/13/2016 Objective Alert: Yes Geddes: Person Mood: Depressed, Other Affect: Flat Memory Intact: Comment (unable to assess ) Hallucinations: Other (unable to assess ) Delusions: No Delusion Type: Other (unable to assess ) Suicidal: Ideation (unable to assess ) Homicidal: Ideation (unable to assess ) Insight/Judgement poor Labs Test 06/14/16 07:35 Sodium Level 142 MEQ/L Potassium Level 3.1 MEQ/L Chloride Level 107 MEQ/L Carbon Dioxide Level 22.0 MEQ/L Anion Gap 13 MEQ/L Blood Urea Nitrogen 19 MG/DL Creatinine 0.80 MG/DL Estimat Glomerular Filtration 70 ML/MIN Rate Random Glucose 171 MG/DL Calcium Level 8.7 MG/DL Magnesium Level 2.0 MG/DL Total Bilirubin 0.9 MG/DL Aspartate Amino Transf 60 U/L (AST/SGOT) Alanine Aminotransferase 122 U/L (ALT/SGPT) Alkaline Phosphatase 112 U/L Total Creatine Kinase 56 U/L Total Protein 7.0 GM/DL Albumin 3.3 GM/DL Triglycerides Level 155 MG/DL Cholesterol Level 226 MG/DL LDL Cholesterol 146 MG/DL HDL Cholesterol 49.3 MG/DL Cholesterol/HDL Ratio 4.58 RATIO Vitals/IOs Vital Signs Date Time Temp Pulse Resp B/P Pulse Ox O2 Delivery O2 Flow Rate FiO2 06/14/16 09:45 97.3 84 16 96/55 97 Intake and Output 06/13/16 06/13/16 06/14/16 08:00 16:00 00:00 Intake Total 0 ml Balance 0 ml Assessment & Plan Problem List: (1) Schizophrenia ICD Code: F20.9 Assessment & Plan Estimated LOS: days Justification for Cont. Inpt. Patient is needs to continue psychiatric hospitalization for stabilization of psychotic symptoms Problem Qualifiers (1) Schizophrenia: Qualified Code: F20.9 - Schizophrenia, unspecified type James Herbert MD Jun 14, 2016 14:48
[2016-06-14 16:24] VITALS: BP 126/63; PULSE 92; RESP 16; TEMP 97.8; O2SAT 95
[2016-06-14 16:34] LABS: HEMOGLOBIN A1a 0.9 %; HEMOGLOBIN A1b 2.2 %; HEMOGLOBIN Ao 80.8 %; HEMOGLOBIN LA1C 2.3 %; HEMOGLOBIN P3 4.5 %
--- NOTE | 2016-06-14 17:07 | PD.CONS ---
Provisional Diagnosis Admission Date Jun 13, 2016 at 10:00 [place] I. 1. Unspecified schizophrenia Rule out component of catatonia [place] II. Deferred [place] V. GAF is 35 presently History of Present Illness Service Psychiatry Consult Requested By Dr. Herbert Reason for Consult Second opinion Primary Care Physician Unknown HPI From Dr. Herbert's H&P: The patient is a 71 year-old woman, Kazakh speaking, , apparently domiciled with her in [place], with past psychiatric history of for psychosis NOS, Schizophrenia, one documented hospitalization at [facility] in 2013 due to psychosis, she was to stabilize with Depakote and Risperdal then, one ER visit in October 2015, but discharged next day, medical history of diabetes or hypertension, who presents to [facility] via law enforcement under a Alves act. She was reportedly brought to [facility] with concerns of acute psychosis; however, due to acute nature of illness, she was subsequently referred to our hospital for eventual psychiatric admission. Patient was hold in the observation area of the ER due to UTI, increased blood pressure, elevated white blood cells, elevated blood sugar, ELYSIA and altered mental status. She had a brain CT scan without acute abnormal findings at this moment. Patient was evaluated in the med/psych unit alone with nurse in charge Riddhi, no collateral information available at this moment. On psychiatric evaluation patient is non-cooperative, she seems to be internally preoccupied, guarded, paranoid, she refuses to answer the questions and seems to be selectively mute. However, in the few occasions she decided to answer question she voices unintelligible words that don't make any sense either in Kyrgyz or Kazakh. She did say "my is crazy crazy crazy" and also she states in Kazakh "I don't like your shows, they are ugly". In spite of persistent reassurance and redirection patient refuses to cooperate. She is not agitated, no hyperactive, she does not seems to be catatonic, she has an irritable and angry affect, rather than flat and restricted. Tried to contact her for collateral information, he was called twice to the documented in the charge telephone number, but the person to answer the telephone and stated that this is a wrong number. On my examination today: Patient seen and examined. Chart reviewed. Case discussed with nursing staff. Per nursing staff, patient's mental status had been poor throughout the night. She reportedly received a dose of IM Ativan this morning and slept most of the day. Upon awakening this afternoon, the patient's mental status is reportedly much improved. She is alert and conversant in Kyrgyz. On my examination today, I do find the patient to be awake and alert. She does indeed appear to have good facility with Kyrgyz. She is fairly confused on my exam however, being oriented to person and hospital only. She denies audiovisual hallucinations but appears internally preoccupied. She describes her mood as "good." She denies any suicidal or homicidal ideation. Thought process seems fairly disorganized. Speech is rambling. Psychiatric interview remains somewhat limited. Past psychiatric history: Patient is unsure of her past psychiatric history. I do see that there is a chart history of psychosis with [address] Chicas. Family history: Patient unable to provide. Chemical dependency history: Patient says that she drinks in bed but she is apparently referring to the IV fluids that she is receiving. Toxicology and alcohol level were both negative on presentation here. Social history: Patient reports that she is with 7 children. Otherwise limited social history. Review of Systems ROS Limitations: Poor Historian Other No reported somatic complaints at this time. Past Family Social History Coded Allergies: No Known Allergies (Unverified , 06/12/16) Per spouse. Past Medical History See electronic medical record Reported Medications Fluoxetine HCl (Prozac)10 Mg Cap10 Mg PO DAILY 11/09/15 Haloperidol (Haldol)2 Mg Tab2 Mg PO BID 10/03/13 Divalproex Sodium 250 mg (Depakote 250 mg)250 Mg [id number] Mg PO BID 08/11/13 Metformin XR 24 HR (Glucophage XR 24 HR)500 Mg [id number] Mg PO BIDPC 08/11/13 Current Medications Medications (Trade) Dose Ordered Sig/Dary Route Start Time Stop Time Status Last Admin (Ativan) 1 mg Q6H PRN PO 06/13/16 13:45 (Ativan Inj) 1 mg Q6H PRN IM 06/13/16 13:45 06/14/16 07:50 (Ativan) 0.5 mg Q12H PRN PO 06/13/16 13:45 (Ativan Inj) 0.5 mg Q12H PRN IM 06/13/16 13:45 (Tylenol) 650 mg Q4H PRN PO 06/13/16 13:45 (Mag-Al Plus Susp Liq) 30 ml Q6H PRN PO 06/13/16 13:45 (risperDAL) 1 mg Q12HR PO 06/13/16 13:45 Hold (Depakote Er) 500 mg BID PO 06/13/16 21:00 Hold (Milk Of Magnesia Liq) 30 ml DAILY PRN PO 06/13/16 14:45 (D50w (Vial) Inj) 25 ml UNSCH PRN IV PUSH 06/13/16 15:00 (Glucagon Inj) 1 mg UNSCH PRN OTHER 06/13/16 15:00 (Bactrim Ds 800-160 Mg) 1 tab Q12HR PO 06/14/16 09:00 06/19/16 08:59 Clonidine 0.1 mg 0.1 mg Q6H PRN PO 06/13/16 15:00 Potassium Chloride/Dextrose/ Sod Cl 1,000 ml @ 42 mls/hr [id number] IV 06/14/16 10:00 06/14/16 15:03 (NS 250 ml Inj) 250 ml @ 250 mls/hr Q4H PRN IV 06/14/16 10:00 Patient's Strengths (min. 2) In a monitored setting. Verbally fluent. Physical Exam Physical examination completed by hospitalist loan consultant. On my examination today, patient is in hospital gown. She is thin and disheveled. She is edentulous. She is somewhat fidgety but without any evident tremors, dystonias or dyskinesias. Labs and vital signs reviewed: Vital Signs Vital Signs Date Time Temp Pulse Resp B/P Pulse Ox O2 Delivery O2 Flow Rate FiO2 06/14/16 16:24 97.8 92 16 126/63 95 I/O 06/13/16 06/13/16 06/14/16 08:00 16:00 00:00 Intake Total 0 ml Balance 0 ml Lab Results Item Value Date Time White Blood Count 8.3 TH/MM3 08/11/13 1630 Hemoglobin 14.3 GM/DL 08/11/13 1630 Platelet Count 216 TH/MM3 08/11/13 1630 Sodium Level 142 MEQ/L 06/14/16 0735 Potassium Level 3.1 MEQ/L L # 06/14/16 0735 Chloride Level 107 MEQ/L # 06/14/16 0735 Carbon Dioxide Level 22.0 MEQ/L 06/14/16 0735 Blood Urea Nitrogen 19 MG/DL H # 06/14/16 0735 Creatinine 0.80 MG/DL 06/14/16 0735 Aspartate Amino Transf (AST/SGOT) 60 U/L H 06/14/16 0735 Alanine Aminotransferase (ALT/SGPT) 122 U/L H 06/14/16 0735 Alkaline Phosphatase 112 U/L 06/14/16 0735 Free Thyroxine 1.32 NG/DL 08/13/13 0915 Thyroid Stimulating Hormone 3rd Gen 1.970 uIU/ML 08/13/13 0915 Mental Status Examination Patient is in hospital gown. She is thin and disheveled. She is awake and alert and oriented to person and hospital only. No motoric abnormalities noted. Speech is rambling. Mood is good and affect is somewhat childlike. Thought process disorganized. No ambar delusional material. Denies audiovisual hallucinations but appears somewhat internally preoccupied. Denies suicidal or homicidal ideation but it is not clear that she is reliable to contract for safety. Insight and judgment seem poor. Speech: Other (mute) Assessment & Plan Problem List: (1) Schizophrenia ICD Code: F20.9 Assessment & Plan Given the circumstances of patient's initial presentation here in her presentation on my examination today, I concur with Dr. Herbert that the patient meets criteria for involuntary psychiatric hospitalization under the Alves act. Further care as per Dr. Herbert. Thank you very much for this consultation. Signing off. Request HC Surrog/Guard Advoc?: Yes Problem Qualifiers (1) Schizophrenia: Qualified Code: F20.9 - Schizophrenia, unspecified type Dean Dunn MD Jun 14, 2016 17:06
[2016-06-14] MEDS: cefTRIAXone INJ 1,000 MG in SODIUM CHLORIDE 0.9% INJ 100 ML IV SCH (18:18)
[2016-06-14 18:34] VITALS: BP 126/63; PULSE 92; RESP 16; TEMP 97.8; O2SAT 95
[2016-06-14] MEDS: DIVALPROEX SODIUM E.R. 500 MG TAB PO SCH (21:06)
[2016-06-14] MEDS: risperiDONE 1 MG TAB PO SCH (21:06)
[2016-06-14] MEDS: LORazepam 0.5 MG TAB PO PRN (21:57)
[2016-06-14] MEDS: 1/2 NS + KCL 20 MEQ INJ 1,000 ML IV SCH (23:39)
[2016-06-15 06:02] VITALS: BP 107/65; PULSE 108; RESP 14; TEMP 97.6; O2SAT 96
[2016-06-15] MEDS: INSULIN ASPART SUPPLEMENTAL SCALE SQ SCH ×4 (06:08→20:33)
[2016-06-15] MEDS ORDERED: LISI2.5T3 PO (06:36)
[2016-06-15] MEDS ORDERED: OMEP20TA PO (06:36)
[2016-06-15 07:01] LABS: BICARBONATE 25.2 MEQ/L (21.0-32.0); POTASSIUM 3.4 MEQ/L (3.5-5.1)
[2016-06-15] MEDS: risperiDONE 1 MG TAB PO SCH ×2 (08:57→20:45)
[2016-06-15] MEDS: DIVALPROEX SODIUM E.R. 500 MG TAB PO SCH ×2 (08:57→20:44)
[2016-06-15] MEDS: 1/2 NS + KCL 20 MEQ INJ 1,000 ML IV SCH (08:58)
--- NOTE | 2016-06-15 09:19 | HHI.PR ---
Subjective Remarks Follow up visit dementia, psychosis, failure to thrive, UTI. Patient seen today. Awake and alert. Speaking in Libyan, follows commands with some confusion. Denies pain and discomfort. Denies SOB/ dyspnea. Denies chest pain , palpitations, headaches, dizziness. Denies fevers, chills, n/v/d. Objective Vitals Vital Signs Date Time Temp Pulse Resp B/P Pulse Ox O2 Delivery O2 Flow Rate FiO2 06/15/16 06:02 97.6 108 14 107/65 96 06/14/16 18:34 97.8 92 16 126/63 95 06/14/16 16:24 97.8 92 16 126/63 95 06/14/16 09:45 97.3 84 16 96/55 97 I/O 06/14/16 06/14/16 06/14/16 06/15/16 06/15/16 06/15/16 07:00 15:00 23:00 07:00 15:00 23:00 Intake Total 1000 ml 0 ml 1200 ml 378 ml 480 ml Balance 1000 ml 0 ml 1200 ml 378 ml 480 ml Intake Oral 0 ml 0 ml 1200 ml 480 ml IV Total 1000 ml 378 ml # Voids 4 2 1 # Bowel Movements 0 Result Diagram: 06/15/16612 Objective Remarks GENERAL: This is a thin elderly appearing, elderly patient, in no apparent distress. SKIN: No rashes, ecchymoses or lesions. Cool and dry. HEAD: Atraumatic. Normocephalic. No temporal or scalp tenderness. EYES: Extraocular motions intact. No scleral icterus. No injection or drainage. ENT: Nose without bleeding. Throat without erythema. Uvula midline. Airway patent. NECK: Trachea midline. No JVD or lymphadenopathy. Supple, nontender, no meningeal signs. CARDIOVASCULAR: Regular rate and rhythm without murmurs, gallops, or rubs. RESPIRATORY: Clear to auscultation. Breath sounds equal bilaterally. No wheezes , rales, or rhonchi. GASTROINTESTINAL: Abdomen soft, non-tender, nondistended. Active bowel sounds 4. MUSCULOSKELETAL: Extremities without clubbing, cyanosis, or edema. No joint tenderness, effusion, or edema noted. No calf tenderness. Negative Homans sign bilaterally. NEUROLOGICAL: Awake and alert. Confused but follows commands. Moves all extremities. A/P Problem List: (1) Schizophrenia ICD Code: F20.9 Status: Acute (2) HTN (hypertension) ICD Code: I10 Status: Chronic (3) Acute kidney injury ICD Code: N17.9 Status: Acute (4) Elevated liver enzymes ICD Code: R74.8 Status: Acute (5) Diabetes mellitus, type 2 ICD Code: E11.9 Status: Chronic (6) UTI (urinary tract infection) ICD Code: N39.0 Status: Acute Assessment and Plan Patient is a 71-year-old female who came into the hospital under Alves act. As per report, she was put to [facility] with concerns of acute psychosis, she was subsequently referred to our hospital for psychiatric admission. Unknown if patient is compliant with taking Depakote as she was previously seen for psychosis. Patient is now admitted to inpatient medical psychiatric unit. Consulted for medical management. Dementia, schizophrenia, psychosis - management by psychiatry team DM 2 - patient previously on metformin 500 mg twice a day at home. Was not restarted secondary to acute kidney injury which is now resolving. However patient still continued risk for acidosis secondary to poor by mouth intake. - Continue insulin sliding scale. Patient is not eating at times. Continue with insulin sliding scale instead of restarting oral hypoglycemics. - Monitor Accu-Cheks. Monitor for hypoglycemia. - hemoglobin A1c 8.6. Hypernatremia - possibly caused by IV fluid infusion. DC NS IV fluids. Patient was started D5 IV, will change to D5 half NS +20 MEQ K+ - Encourage by mouth intake - sodium 140. - If patient starts to eat and adequate by mouth intake Will DC IV fluids. Transaminitis, elevated liver enzymes - history of elevated AST and ALT. Abdominal examination benign. Possibly chronic. - Hepatitis panel negative - Avoid hepatotoxins. - If worsening, imaging studies can be done. Elevated lipase - 404. - recheck in few days. Urinary tract infection - was started on Rocephin in inpatient. Follow-up cultures, pending - Switched to Bactrim end date 06/19/2016. DC Bactrim from now as patient is not taking by mouth medications. Will start Rocephin 2 days - Encourage by mouth fluid intake HTN - elevated BP 150s to 160s, and clonidine when necessary. - low-dose lisinopril 2.5mg daily. - Monitor BP trend Hyperlipidemia - ASCVD risk increase secondary to diabetes, hypertension. However, liver enzymes are elevated and patient right now has poor by mouth intake. - Will hold off on starting patient on statin medication. We will discuss with family members if they are available risk and benefits of medication use. Generalized weakness - PT eval and treat DVT prop early ambulation Nurses contacted patient daughter and was able to give some of the information. They have contacted the pharmacy that states patient has not refilled her medication since 2016. Discuss with patient, RN Written by Nina Cruz, acting as scribe for Dr. Hall on 06/15/16 at 09: 30. The documentation accurately reflects the work performed [id number] by me on at 18:19. Problem Qualifiers (1) Schizophrenia: Qualified Code: F20.9 - Schizophrenia, unspecified type Nina Nelson Jun 15, 2016 09:19 Anselmo Hall MD Jun 16, 2016 18:20
[2016-06-15] MEDS ORDERED: POTASSIUM CL 40 MEQ/30 ML LIQ UDC PO ONE (09:30)
--- NOTE | 2016-06-15 11:09 | HHI.PYPN ---
Subjective Remarks Patient was seen today for psychiatric reevaluation, patient was found sitting in a chair in her room, watching TV, calm, cooperative, pleasant very cheerful. She is states that she is happy to be here in the hospital, she doesn't know the name of the hospital. She states that she is here because her is not a good person, but she doesn't elaborate about this idea. Patient is disoriented in time, but she knows Telma was the last president and Carlos Hopper is the president now, she is able to name the days of the week. Denies depression, denies anxiety, denies suicidal or homicidal ideation, denies visual and auditory hallucinations. She seems to be mostly logical, coherent able to sustain a conversation with some periods of disorganization and tangentiality, but she is easily redirectable. As per nurse in charge, no aggressive behavior, no agitation, no mood or behavior dysregulation has been observer reported in the last 24 hours, patient has been compliant with her medications very manageable. Review of Systems Other No somatic complaints Objective Alert: Yes [place]: Person, Place (partially) Mood: Calm, Other Affect: Euthymic Memory Intact: Immediate, Recent, Comment (unable to assess ) Hallucinations: Other (she denies) Delusions: No Delusion Type: Other (none elicited) Suicidal: Ideation (she denies) Homicidal: Ideation (she denies) Insight/Judgement Poor Labs Test 06/15/16 06:13 Sodium Level 140 MEQ/L Potassium Level 3.4 MEQ/L Chloride Level 107 MEQ/L Carbon Dioxide Level 25.2 MEQ/L Anion Gap 8 MEQ/L Blood Urea Nitrogen 21 MG/DL Creatinine 0.66 MG/DL Estimat Glomerular Filtration 88 ML/MIN Rate Random Glucose 120 MG/DL Calcium Level 8.3 MG/DL Magnesium Level 2.0 MG/DL Vitals/IOs Vital Signs Date Time Temp Pulse Resp B/P Pulse Ox O2 Delivery O2 Flow Rate FiO2 06/15/16 06:02 97.6 108 14 107/65 96 Intake and Output 06/14/16 06/14/16 06/15/16 08:00 16:00 00:00 Intake Total 1000 ml 120 ml 1080 ml Balance 1000 ml 120 ml 1080 ml Assessment & Plan Problem List: (1) Schizophrenia Assessment & Plan: Patient seems to be more cooperative and more logical in general, disorganized speech and tangentiality observed at times, also some cognitive impairment. We'll continue psychiatric hospitalization for stabilization, no changes in psychotropics today. ICD Code: F20.9 Assessment & Plan Estimated LOS: days Justification for Cont. Inpt. Patient poses a high risk to decompensate are of an structure environment Request HC Surrog/Guard Advoc?: Yes Problem Qualifiers (1) Schizophrenia: Qualified Code: F20.9 - Schizophrenia, unspecified type James Herbert MD Jun 15, 2016 11:09
[2016-06-15] MEDS ORDERED: PILL SPLITTER OTHER PRN (15:15)
[2016-06-15] MEDS: cefTRIAXone INJ 1,000 MG in SODIUM CHLORIDE 0.9% INJ 100 ML IV SCH (18:00)
[2016-06-15 18:15] VITALS: BP 124/65; PULSE 105; RESP 15; O2SAT 100
[2016-06-16 05:56] VITALS: BP 162/72; PULSE 102; RESP 16; TEMP 97.7; O2SAT 99
[2016-06-16] MEDS: INSULIN ASPART SUPPLEMENTAL SCALE SQ SCH ×4 (06:02→20:55)
[2016-06-16] MEDS ORDERED: OLANZapine IM 10 MG VIAL IM ONE ×2 (08:41→09:30)
[2016-06-16] MEDS: LISINOPRIL 5 MG TAB PO SCH (09:00)
[2016-06-16] MEDS: risperiDONE 1 MG TAB PO SCH ×2 (09:00→20:33)
[2016-06-16] MEDS: DIVALPROEX SODIUM E.R. 500 MG TAB PO SCH ×2 (09:00→20:33)
--- NOTE | 2016-06-16 12:50 | HHI.PYPN ---
Subjective Remarks Patient was seen for psychiatric reevaluation along with nurse in charge Allan, patient was following her bed, disorganized, irritable, agitated and disinhibited. Patient says that she is very upset "I don't like the people here ", and then stop providing information. Minutes later, while we were rounding in the unit, we were informed that the patient defecated in the floor. Last night she refused to take her medication. Review of Systems Other No somatic complaint Objective Alert: Yes [place]: Person, Place (partially) Mood: Agitated, Other Affect: Other (irritable) Memory Intact: Immediate, Recent, Comment (unable to assess ) Hallucinations: Other (she denies) Delusions: No Delusion Type: Other (none elicited) Suicidal: Ideation (she denies) Homicidal: Ideation (she denies) Insight/Judgement Poor Vitals/IOs Vital Signs Date Time Temp Pulse Resp B/P Pulse Ox O2 Delivery O2 Flow Rate FiO2 06/16/16 05:56 97.7 102 16 162/72 99 Intake and Output 06/15/16 06/15/16 06/16/16 08:00 16:00 00:00 Intake Total 378 ml 720 ml 0 ml Balance 378 ml 720 ml 0 ml Assessment & Plan Problem List: (1) Schizophrenia Assessment & Plan: Today patient is disorganized, irritable, disinhibited, agitated, refusing to take her medication, disruptive in the unit. Patient will be given olanzapine 5 mg IM to help her to calm down, then continue her psychotropics. Will order a Depakote level. ICD Code: F20.9 Assessment & Plan Estimated LOS: days Justification for Cont. Inpt. Patient is acutely psychotic, disorganized, she needs to continue psychiatric hospitalization for stabilization. Request HC Surrog/Guard Advoc?: Yes Problem Qualifiers (1) Schizophrenia: Qualified Code: F20.9 - Schizophrenia, unspecified type James Herbert MD Jun 16, 2016 12:50
--- NOTE | 2016-06-16 14:27 | HHI.PR ---
Subjective Remarks Follow up visit dementia, psychosis, failure to thrive, UTI, DM 2. Patient seen today. Awake and alert. Confuse and speaking Angolan but does not make any intelligible conversation. Denies pain and discomfort. Denies SOB/ dyspnea. Denies chest pain, palpitations, headaches, dizziness. Denies fevers, chills, n/v/d. Improved appetite, eating today. Objective Vitals Vital Signs Date Time Temp Pulse Resp B/P Pulse Ox O2 Delivery O2 Flow Rate FiO2 06/16/16 05:56 97.7 102 16 162/72 99 06/15/16 18:15 105 15 124/65 100 I/O 06/15/16 06/15/16 06/15/16 06/16/16 06/16/16 06/16/16 07:00 15:00 23:00 07:00 15:00 23:00 Intake Total 378 ml 720 ml 0 ml 0 ml 120 ml Output Total 0 ml Balance 378 ml 720 ml 0 ml 0 ml 120 ml Intake Oral 720 ml 0 ml 0 ml 120 ml IV Total 378 ml Output Stool Total 0 ml # Voids 1 3 5 Result Diagram: 06/15/16 0613 Objective Remarks GENERAL: This is a thin elderly appearing, elderly patient, in no apparent distress. SKIN: No rashes, ecchymoses or lesions. Cool and dry. HEAD: Atraumatic. Normocephalic. No temporal or scalp tenderness. EYES: Extraocular motions intact. No scleral icterus. No injection or drainage. ENT: Nose without bleeding. Throat without erythema. Uvula midline. Airway patent. NECK: Trachea midline. No JVD or lymphadenopathy. Supple, nontender, no meningeal signs. CARDIOVASCULAR: Regular rate and rhythm without murmurs, gallops, or rubs. RESPIRATORY: Clear to auscultation. Breath sounds equal bilaterally. No wheezes , rales, or rhonchi. GASTROINTESTINAL: Abdomen soft, non-tender, nondistended. Active bowel sounds 4. MUSCULOSKELETAL: Extremities without clubbing, cyanosis, or edema. No joint tenderness, effusion, or edema noted. No calf tenderness. Negative Homans sign bilaterally. NEUROLOGICAL: Awake and alert. Confused but follows commands. Moves all extremities. Angolan speaking. A/P Problem List: (1) Schizophrenia ICD Code: F20.9 Status: Acute (2) HTN (hypertension) ICD Code: I10 Status: Chronic (3) Acute kidney injury ICD Code: N17.9 Status: Acute (4) Elevated liver enzymes ICD Code: R74.8 Status: Acute (5) Diabetes mellitus, type 2 ICD Code: E11.9 Status: Chronic (6) UTI (urinary tract infection) ICD Code: N39.0 Status: Acute Assessment and Plan Patient is a 71-year-old female who came into the hospital under Alves act. As per report, she was put to [facility] with concerns of acute psychosis, she was subsequently referred to our hospital for psychiatric admission. Unknown if patient is compliant with taking Depakote as she was previously seen for psychosis. Patient is now admitted to inpatient medical psychiatric unit. Consulted for medical management. Dementia, schizophrenia, psychosis - management by psychiatry team DM 2 - patient previously on metformin 500 mg twice a day at home. Was not restarted secondary to acute kidney injury which is now resolving. However patient still continued risk for acidosis secondary to poor by mouth intake. - Continue insulin sliding scale. Patient is not eating at times. Continue with insulin sliding scale instead of restarting oral hypoglycemics. - Monitor Accu-Cheks. Monitor for hypoglycemia. - hemoglobin A1c 8.6. Continue Insulin use. Start Levemir Hypernatremia - possibly caused by IV fluid infusion. DC NS IV fluids. Patient was started D5 IV, will change to D5 half NS +20 MEQ K+ - Encourage by mouth intake - sodium 140. - If patient starts to eat and adequate by mouth intake Will DC IV fluids. Transaminitis, elevated liver enzymes - history of elevated AST and ALT. Abdominal examination benign. Possibly chronic. - Hepatitis panel negative - Avoid hepatotoxins. - If worsening, imaging studies can be done. Elevated lipase - 404. - recheck in few days. Urinary tract infection - was started on Rocephin in inpatient. Follow-up cultures, pending - Switched to Bactrim end date 06/19/2016. DC Bactrim from now as patient is not taking by mouth medications. Will start Rocephin 2 days - Encourage by mouth fluid intake HTN - elevated BP 150s to 160s, and clonidine when necessary. - low-dose lisinopril 2.5mg daily. - Monitor BP trend Hyperlipidemia - ASCVD risk increase secondary to diabetes, hypertension. However, liver enzymes are elevated and patient right now has poor by mouth intake. - Will hold off on starting patient on statin medication. We will discuss with family members if they are available risk and benefits of medication use. Generalized weakness - PT eval and treat DVT prop early ambulation Discuss with patient, RN Written by Nina Cruz, acting as scribe for Dr. Hall on 06/16/16 at 12: 58. The documentation accurately reflects the work performed [id number] by me on at 18:19. Problem Qualifiers (1) Schizophrenia: Qualified Code: F20.9 - Schizophrenia, unspecified type Nina Nelson Jun 16, 2016 14:27 Anselmo Hall MD Jun 16, 2016 18:19
[2016-06-16 16:06] LABS: ALT (GPT) 108 U/L (10-53); ANION GAP 8 MEQ/L (5-15); AST (GOT) 58 U/L (15-37); AUTOMATED NEUTROPHIL # 4.1 TH/MM3 (1.8-7.7); BASOPHIL % 0.4 % (0.0-2.0); BICARBONATE 27.2 MEQ/L (21.0-32.0); BLOOD UREA NITROGEN 20 MG/DL (7-18); CHLORIDE 109 MEQ/L (98-107); EOSINOPHIL # 0.1 TH/MM3 (0-0.4); EOSINOPHIL % 1.3 % (0.0-4.0); GLOMERULAR FILTRATION RATE 67 ML/MIN (>89); HEMATOCRIT 39.1 % (35.0-46.0); LYMPH % 30.2 % (9.0-44.0); LYMPHOCYTE # 2.1 TH/MM3 (1.0-4.8); MEAN CELL VOLUME 92.2 FL (80.0-100.0); MEAN CORPUSCULAR HEMOGLOBIN 31.2 PG (27.0-34.0); MEAN CORPUSCULAR HGB CONC 33.8 % (32.0-36.0); MONO % 9.2 % (0.0-8.0); NEUT % 58.9 % (16.0-70.0); PLATELET COUNT 189 TH/MM3 (150-450); POTASSIUM 4.1 MEQ/L (3.5-5.1); RED BLOOD COUNT 4.24 MIL/MM3 (4.00-5.30); RED CELL DISTRIBUTION WIDTH 13.6 % (11.6-17.2); SODIUM (NA) 144 MEQ/L (136-145); WHITE BLOOD COUNT 6.9 TH/MM3 (4.0-11.0)
[2016-06-16 16:08] LABS: HEMO FLAGS AUTO DIFF
[2016-06-16 16:31] LABS: ALKALINE PHOSPHATASE 119 U/L (45-117); THYROXINE (T4) 9.4 MCG/DL (4.8-13.9); TOTAL BILIRUBIN ADULT 0.3 MG/DL (0.2-1.0)
[2016-06-16 17:34] VITALS: BP 149/70; PULSE 101; RESP 16; TEMP 98.9; O2SAT 99
[2016-06-16 17:42] LABS: SCAN/DIFF AUTO DIFF CONFIRMED
[2016-06-16] MEDS: LORazepam 0.5 MG TAB PO PRN (20:33)
[2016-06-16] MEDS ORDERED: INSULIN DETEMIR 100 UNITS/ML VIAL SQ SCH (21:00)
[2016-06-16] MEDS: 1/2 NS + KCL 20 MEQ INJ 1,000 ML IV SCH (21:08)
[2016-06-17 05:51] VITALS: BP 131/61; PULSE 107; RESP 16; TEMP 98; O2SAT 100
[2016-06-17] MEDS: INSULIN ASPART SUPPLEMENTAL SCALE SQ SCH ×4 (06:28→20:43)
[2016-06-17] MEDS: DIVALPROEX SODIUM E.R. 500 MG TAB PO SCH ×2 (09:04→20:43)
[2016-06-17] MEDS: PANTOPRAZOLE SOD 20 MG DELAYED RELEASE TAB PO SCH (09:04)
[2016-06-17] MEDS: LISINOPRIL 5 MG TAB PO SCH (09:05)
[2016-06-17] MEDS: risperiDONE 1 MG TAB PO SCH ×2 (09:05→20:43)
--- NOTE | 2016-06-17 11:38 | HHI.PYPN ---
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 There is some underlying irritability which was able to show a brief little glimpse of humor with me. Patient compliant with her medications Review of Systems Except as stated in HPI: all other systems reviewed are Neg Objective Alert: Yes [place]: Person, Place (partially) Mood: Agitated, Other Affect: Other (irritable) Memory Intact: Immediate, Recent, Comment (unable to assess ) Hallucinations: Other (she denies) Delusions: No Delusion Type: Other (none elicited) Suicidal: Ideation (she denies) Homicidal: Ideation (she denies) Insight/Judgement Poor Labs Test 06/16/16 15:09 White Blood Count 6.9 TH/MM3 Red Blood Count 4.24 MIL/MM3 Hemoglobin 13.2 GM/DL Hematocrit 39.1 % Mean Corpuscular Volume 92.2 FL Mean Corpuscular Hemoglobin 31.2 PG Mean Corpuscular Hemoglobin 33.8 % Concent Red Cell Distribution Width 13.6 % Platelet Count 189 TH/MM3 Mean Platelet Volume 10.1 FL Neutrophils (%) (Auto) 58.9 % Lymphocytes (%) (Auto) 30.2 % Monocytes (%) (Auto) 9.2 % Eosinophils (%) (Auto) 1.3 % Basophils (%) (Auto) 0.4 % Neutrophils # (Auto) 4.1 TH/MM3 Lymphocytes # (Auto) 2.1 TH/MM3 Monocytes # (Auto) 0.6 TH/MM3 Eosinophils # (Auto) 0.1 TH/MM3 Basophils # (Auto) 0.0 TH/MM3 CBC Comment AUTO DIFF Differential Comment AUTO DIFF CONFIRMED Sodium Level 144 MEQ/L Potassium Level 4.1 MEQ/L Chloride Level 109 MEQ/L Carbon Dioxide Level 27.2 MEQ/L Anion Gap 8 MEQ/L Blood Urea Nitrogen 20 MG/DL Creatinine 0.83 MG/DL Estimat Glomerular Filtration 67 ML/MIN Rate Random Glucose 180 MG/DL Calcium Level 8.8 MG/DL Total Bilirubin 0.3 MG/DL Aspartate Amino Transf 58 U/L (AST/SGOT) Alanine Aminotransferase 108 U/L (ALT/SGPT) Alkaline Phosphatase 119 U/L Total Protein 6.6 GM/DL Albumin 3.0 GM/DL Vitamin B12 Level GREATER THAN 2000 PG/ML Folate GREATER THAN 20.0 NG/ML Thyroxine (T4) 9.4 MCG/DL Thyroid Stimulating Hormone 1.230 uIU/ML 3rd Gen Valproic Acid (Depakene) Level 55 MCG/ML Vitals/IOs Vital Signs Date Time Temp Pulse Resp B/P Pulse Ox O2 Delivery O2 Flow Rate FiO2 06/17/16 05:51 98.0 107 16 131/61 100 Intake and Output 06/16/16 06/16/16 06/17/16 08:00 16:00 00:00 Intake Total 0 ml 120 ml 600 ml Output Total 0 ml Balance 0 ml 120 ml 600 ml Assessment & Plan Problem List: (1) Schizophrenia ICD Code: F20.9 Assessment & Plan Estimated LOS: days patient continues somewhat irritable vigilant. Compliant medications. Justification for Cont. Inpt. At this time patient will decompensate placed in the lower level of care Discharge Planning To be determined Request HC Surrog/Guard Advoc?: Yes Problem Qualifiers (1) Schizophrenia: Qualified Code: F20.9 - Schizophrenia, unspecified type Grant Craig MD Jun 17, 2016 11:38
[2016-06-17] MEDS: LORazepam 1 MG TAB PO PRN (12:12)
--- NOTE | 2016-06-17 16:44 | HHI.PR ---
Subjective Remarks Follow-up diabetes mellitus. Continues to be hyperglycemic. Oral intake is variable. Discussed with RN Objective Vitals Vital Signs Date Time Temp Pulse Resp B/P Pulse Ox O2 Delivery O2 Flow Rate FiO2 06/17/16 05:51 98.0 107 16 131/61 100 06/16/16 17:34 98.9 101 16 149/70 99 I/O 06/16/16 06/16/16 06/16/16 06/17/16 06/17/16 06/17/16 07:00 15:00 23:00 07:00 15:00 23:00 Intake Total 0 ml 120 ml 600 ml 720 ml Output Total 0 ml Balance 0 ml 120 ml 600 ml 720 ml Intake Oral 0 ml 120 ml 600 ml 720 ml Output Stool Total 0 ml # Voids 5 1 2 1 Result Diagram: 06/16/16 1509 06/16/16 1509 Objective Remarks GENERAL: This is a thin elderly appearing, elderly patient, in no apparent distress. SKIN: No rashes, ecchymoses or lesions. Cool and dry. HEAD: Atraumatic. Normocephalic. No temporal or scalp tenderness. EYES: Extraocular motions intact. No scleral icterus. No injection or drainage. ENT: Nose without bleeding. Throat without erythema. Uvula midline. Airway patent. NECK: Trachea midline. No JVD or lymphadenopathy. Supple, nontender, no meningeal signs. CARDIOVASCULAR: Regular rate and rhythm without murmurs, gallops, or rubs. RESPIRATORY: Clear to auscultation. Breath sounds equal bilaterally. No wheezes , rales, or rhonchi. GASTROINTESTINAL: Abdomen soft, non-tender, nondistended. Active bowel sounds 4. MUSCULOSKELETAL: Extremities without clubbing, cyanosis, or edema. No joint tenderness, effusion, or edema noted. No calf tenderness. Negative Homans sign bilaterally. NEUROLOGICAL: Awake and alert. Confused but follows commands. Moves all extremities. A/P Problem List: (1) Schizophrenia ICD Code: F20.9 Status: Acute (2) HTN (hypertension) ICD Code: I10 Status: Chronic (3) Acute kidney injury ICD Code: N17.9 Status: Acute (4) Elevated liver enzymes ICD Code: R74.8 Status: Acute (5) Diabetes mellitus, type 2 ICD Code: E11.9 Status: Chronic (6) UTI (urinary tract infection) ICD Code: N39.0 Status: Acute Assessment and Plan Patient is a 71-year-old female who came into the hospital under Alves act. As per report, she was put to [facility] with concerns of acute psychosis, she was subsequently referred to our hospital for psychiatric admission. Unknown if patient is compliant with taking Depakote as she was previously seen for psychosis. Patient is now admitted to inpatient medical psychiatric unit. Consulted for medical management. Dementia, schizophrenia, psychosis - management by psychiatry team DM 2 - patient previously on metformin 500 mg twice a day at home. Was not restarted secondary to acute kidney injury which is now resolving. However patient still continued risk for acidosis secondary to poor by mouth intake. - Continue insulin sliding scale. Patient is not eating at times. Continue with insulin sliding scale instead of restarting oral hypoglycemics. - Monitor Accu-Cheks. Monitor for hypoglycemia. - hemoglobin A1c 8.6. Increase Levemir to 8 units daily and adjust per glycemic trends Hypernatremia - possibly caused by IV fluid infusion. DC NS IV fluids. Patient was started D5 IV, will change to D5 half NS +20 MEQ K+ - Encourage by mouth intake - sodium 140. - If patient starts to eat and adequate by mouth intake Will DC IV fluids. IV fluids discontinued Transaminitis, elevated liver enzymes - history of elevated AST and ALT. Abdominal examination benign. Possibly chronic. - Hepatitis panel negative - Avoid hepatotoxins. - If worsening, imaging studies can be done. Elevated lipase - 404. - recheck in few days. Urinary tract infection - was started on Rocephin in inpatient. Follow-up cultures, pending - Switched to Bactrim end date 06/19/2016. DC Bactrim from now as patient is not taking by mouth medications. Will start Rocephin 2 days. Patient completed Rocephin - Encourage by mouth fluid intake HTN - elevated BP 150s to 160s, and clonidine when necessary. - low-dose lisinopril 2.5mg daily. - Monitor BP trend Hyperlipidemia - ASCVD risk increase secondary to diabetes, hypertension. However, liver enzymes are elevated and patient right now has poor by mouth intake. - Will hold off on starting patient on statin medication. We will discuss with family members if they are available risk and benefits of medication use. Generalized weakness - PT eval and treat DVT prop early ambulation Problem Qualifiers (1) Schizophrenia: Qualified Code: F20.9 - Schizophrenia, unspecified type Anselmo Hall MD Jun 17, 2016 16:44
[2016-06-17 18:42] VITALS: BP 139/63; PULSE 109; RESP 16; TEMP 98.1; O2SAT 99
[2016-06-18] MEDS: LORazepam 0.5 MG TAB PO PRN (02:11)
[2016-06-18 05:51] VITALS: BP 157/64; PULSE 106; RESP 16; TEMP 98.2; O2SAT 99
[2016-06-18] MEDS: INSULIN ASPART SUPPLEMENTAL SCALE SQ SCH ×4 (06:42→20:01)
[2016-06-18] MEDS ORDERED: INSULIN DETEMIR 100 UNITS/ML VIAL SQ SCH (08:00)
--- NOTE | 2016-06-18 08:29 | HHI.PYPN ---
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 For now continue treatment Review of Systems Except as stated in HPI: all other systems reviewed are Neg Objective Alert: Yes [place]: Person, Place (partially) Mood: Agitated, Other Affect: Other (irritable) Memory Intact: Immediate, Recent, Comment (unable to assess ) Hallucinations: Other (she denies) Delusions: No Delusion Type: Other (none elicited) Suicidal: Ideation (she denies) Homicidal: Ideation (she denies) Insight/Judgement Poor Vitals/IOs Vital Signs Date Time Temp Pulse Resp B/P Pulse Ox O2 Delivery O2 Flow Rate FiO2 06/18/16 05:51 98.2 106 16 157/64 99 Intake and Output 06/17/16 06/17/16 06/18/16 08:00 16:00 00:00 Intake Total 720 ml 600 ml Balance 720 ml 600 ml Assessment & Plan Problem List: (1) Schizophrenia ICD Code: F20.9 Assessment & Plan Estimated LOS: days patient continues calm today with me showing some improvement in her orientation. Compliant medications. For now continue treatment Justification for Cont. Inpt. At this time patient would significantly decompensate if placed in a lower level of care Discharge Planning To be determined Request HC Surrog/Guard Advoc?: Yes Problem Qualifiers (1) Schizophrenia: Qualified Code: F20.9 - Schizophrenia, unspecified type Grant Craig MD Jun 18, 2016 08:29
[2016-06-18] MEDS: INSULIN DETEMIR 100 UNITS/ML VIAL SQ SCH (08:34)
[2016-06-18] MEDS: PANTOPRAZOLE SOD 20 MG DELAYED RELEASE TAB PO SCH (08:35)
[2016-06-18] MEDS: LISINOPRIL 5 MG TAB PO SCH (08:35)
[2016-06-18] MEDS: DIVALPROEX SODIUM E.R. 500 MG TAB PO SCH ×2 (08:35→20:00)
[2016-06-18] MEDS: risperiDONE 1 MG TAB PO SCH ×2 (08:35→20:00)
[2016-06-18 08:58] VITALS: BP 157/64; PULSE 106; RESP 18; TEMP 98.2; O2SAT 99
--- NOTE | 2016-06-18 10:05 | HHI.PR ---
Subjective Remarks Follow up visit dementia, psychosis, failure to thrive, UTI, DM 2. Patient seen today. Awake and alert. Confuse and speaking Kazakh and Barb[place]. Reports she doesn't want to drink water. Denies pain and discomfort. Denies SOB / dyspnea. Denies chest pain, palpitations, headaches, dizziness. Denies fevers , chills, n/v/d. Improved appetite, eating today. Objective Vitals Vital Signs Date Time Temp Pulse Resp B/P Pulse Ox O2 Delivery O2 Flow Rate FiO2 06/18/16 08:58 98.2 106 18 157/64 99 06/18/16 05:51 98.2 106 16 157/64 99 06/17/16 18:42 98.1 109 16 139/63 99 I/O 06/17/16 06/17/16 06/17/16 06/18/16 06/18/16 06/18/16 07:00 15:00 23:00 07:00 15:00 23:00 Intake Total 720 ml 600 ml 480 ml Balance 720 ml 600 ml 480 ml Intake Oral 720 ml 600 ml 480 ml # Voids 2 1 2 3 Result Diagram: 06/16/16 1509 06/16/16 1509 Objective Remarks GENERAL: This is a thin elderly appearing, elderly patient, in no apparent distress. SKIN: No rashes, ecchymoses or lesions. Cool and dry. HEAD: Atraumatic. Normocephalic. No temporal or scalp tenderness. EYES: Extraocular motions intact. No scleral icterus. No injection or drainage. ENT: Nose without bleeding. Throat without erythema. Uvula midline. Airway patent. NECK: Trachea midline. No JVD or lymphadenopathy. Supple, nontender, no meningeal signs. CARDIOVASCULAR: Regular rate and rhythm without murmurs, gallops, or rubs. RESPIRATORY: Clear to auscultation. Breath sounds equal bilaterally. No wheezes , rales, or rhonchi. GASTROINTESTINAL: Abdomen soft, non-tender, nondistended. Active bowel sounds 4. MUSCULOSKELETAL: Extremities without clubbing, cyanosis, or edema. No joint tenderness, effusion, or edema noted. No calf tenderness. Negative Homans sign bilaterally. NEUROLOGICAL: Awake and alert. Confused but follows commands. Moves all extremities. Barb[place] and Kazakh speaking. A/P Problem List: (1) Schizophrenia ICD Code: F20.9 Status: Acute (2) HTN (hypertension) ICD Code: I10 Status: Chronic (3) Acute kidney injury ICD Code: N17.9 Status: Acute (4) Elevated liver enzymes ICD Code: R74.8 Status: Acute (5) Diabetes mellitus, type 2 ICD Code: E11.9 Status: Chronic (6) UTI (urinary tract infection) ICD Code: N39.0 Status: Acute Assessment and Plan Patient is a 71-year-old female who came into the hospital under Alves act. As per report, she was put to [facility] with concerns of acute psychosis, she was subsequently referred to our hospital for psychiatric admission. Unknown if patient is compliant with taking Depakote as she was previously seen for psychosis. Patient is now admitted to inpatient medical psychiatric unit. Consulted for medical management. Dementia, schizophrenia, psychosis - management by psychiatry team DM 2 - patient previously on metformin 500 mg twice a day at home. Was not restarted secondary to acute kidney injury which is now resolving. However patient still continued risk for acidosis secondary to poor by mouth intake. - Continue insulin sliding scale. Patient is not eating at times. Continue with insulin sliding scale instead of restarting oral hypoglycemics. - Monitor Accu-Cheks. Monitor for hypoglycemia. - hemoglobin A1c 8.6. Increase Levemir to 10 units daily and adjust per glycemic trends Hypernatremia - possibly caused by IV fluid infusion. DC NS IV fluids. Patient was started D5 IV, will change to D5 half NS +20 MEQ K+. DC IVF - Encourage by mouth intake - sodium 140. - If patient starts to eat and adequate by mouth intake Will DC IV fluids. Transaminitis, elevated liver enzymes - history of elevated AST and ALT. Abdominal examination benign. Possibly chronic. - Hepatitis panel negative - Avoid hepatotoxins. - If worsening, imaging studies can be done. Elevated lipase - 404. - recheck in few days. Urinary tract infection -status post Bactrim and Rocephin - Encourage by mouth fluid intake HTN - elevated BP 150s to 160s, and clonidine when necessary. - low-dose lisinopril 2.5mg daily. - Monitor BP trend Hyperlipidemia - ASCVD risk increase secondary to diabetes, hypertension. However, liver enzymes are elevated and patient right now has poor by mouth intake. - Will hold off on starting patient on statin medication. We will discuss with family members if they are available risk and benefits of medication use. Generalized weakness - PT DVT prop early ambulation Discuss with patient, RN Written by Nina Cruz, acting as scribe for Dr. Hall on 06/18/16 at 09: 58. The documentation accurately reflects the work performed [id number] by me on at 14:28. Problem Qualifiers (1) Schizophrenia: Qualified Code: F20.9 - Schizophrenia, unspecified type Nnia Nelson Jun 18, 2016 10:04 Anselmo Hall MD Jun 18, 2016 14:28
[2016-06-18 16:41] VITALS: BP 157/77; PULSE 109; RESP 24; O2SAT 100
[2016-06-18 18:36] VITALS: BP 133/60; PULSE 115; RESP 16; TEMP 98.1; O2SAT 98
[2016-06-18] MEDS: LORazepam 1 MG TAB PO PRN (23:39)
[2016-06-19 05:47] VITALS: BP 126/66; PULSE 112; RESP 16; TEMP 97.5; O2SAT 99
[2016-06-19] MEDS: INSULIN ASPART SUPPLEMENTAL SCALE SQ SCH ×4 (06:00→20:39)
[2016-06-19] MEDS: INSULIN DETEMIR 100 UNITS/ML VIAL SQ SCH (08:17)
[2016-06-19] MEDS: DIVALPROEX SODIUM E.R. 500 MG TAB PO SCH ×2 (08:17→20:38)
[2016-06-19] MEDS: PANTOPRAZOLE SOD 20 MG DELAYED RELEASE TAB PO SCH (08:18)
[2016-06-19] MEDS: risperiDONE 1 MG TAB PO SCH ×2 (08:18→20:37)
[2016-06-19] MEDS: LISINOPRIL 5 MG TAB PO SCH (08:19)
--- NOTE | 2016-06-19 14:24 | HHI.PYPN ---
Subjective Remarks Cont to have unstable blood sugars and periodic, unpredictable agitation. Review of Systems Except as stated in HPI: all other systems reviewed are Neg Objective Alert: Yes [place]: Person, Place (partially) Mood: Agitated, Other Affect: Other (irritable) Memory Intact: Immediate, Recent, Comment (unable to assess ) Hallucinations: Other (she denies) Delusions: No Delusion Type: Other (none elicited) Suicidal: Ideation (she denies) Homicidal: Ideation (she denies) Insight/Judgement Impaired. Vitals/IOs Vital Signs Date Time Temp Pulse Resp B/P Pulse Ox O2 Delivery O2 Flow Rate FiO2 06/19/16 05:47 97.5 112 16 126/66 99 Intake and Output 06/18/16 06/18/16 06/19/16 08:00 16:00 00:00 Intake Total 480 ml 1080 ml Balance 480 ml 1080 ml Assessment & Plan Problem List: (1) Schizophrenia ICD Code: F20.9 Assessment & Plan Estimated LOS: days Justification for Cont. Inpt. Unable to care for self. Request HC Surrog/Guard Advoc?: Yes Problem Qualifiers (1) Schizophrenia: Qualified Code: F20.9 - Schizophrenia, unspecified type Irvin Pineda MD Jun 19, 2016 14:24
--- NOTE | 2016-06-19 15:08 | HHI.PR ---
Subjective Remarks Follow-up diabetes mellitus. Erratic glucose control secondary to unpredictable oral intake. Patient remains confused. Discussed with RN Objective Vitals Vital Signs Date Time Temp Pulse Resp B/P Pulse Ox O2 Delivery O2 Flow Rate FiO2 06/19/16 05:47 97.5 112 16 126/66 99 06/18/16 18:36 98.1 115 16 133/60 98 06/18/16 16:41 109 24 157/77 100 I/O 06/18/16 06/18/16 06/18/16 06/19/16 06/19/16 06/19/16 07:00 15:00 23:00 07:00 15:00 23:00 Intake Total 480 ml 1080 ml Balance 480 ml 1080 ml Intake Oral 480 ml 1080 ml # Voids 3 4 4 Result Diagram: 06/16/16 1509 06/16/16 1509 Objective Remarks GENERAL: This is a thin elderly appearing, elderly patient, in no apparent distress. SKIN: No rashes, ecchymoses or lesions. Cool and dry. HEAD: Atraumatic. Normocephalic. No temporal or scalp tenderness. EYES: Extraocular motions intact. No scleral icterus. No injection or drainage. ENT: Nose without bleeding. Throat without erythema. Uvula midline. Airway patent. NECK: Trachea midline. No JVD or lymphadenopathy. Supple, nontender, no meningeal signs. CARDIOVASCULAR: Regular rate and rhythm without murmurs, gallops, or rubs. RESPIRATORY: Clear to auscultation. Breath sounds equal bilaterally. No wheezes , rales, or rhonchi. GASTROINTESTINAL: Abdomen soft, non-tender, nondistended. Active bowel sounds 4. MUSCULOSKELETAL: Extremities without clubbing, cyanosis, or edema. No joint tenderness, effusion, or edema noted. No calf tenderness. Negative Homans sign bilaterally. NEUROLOGICAL: Awake and alert. Confused but follows commands. Moves all extremities. Nonfocal A/P Problem List: (1) Schizophrenia ICD Code: F20.9 Status: Acute (2) HTN (hypertension) ICD Code: I10 Status: Chronic (3) Acute kidney injury ICD Code: N17.9 Status: Acute (4) Elevated liver enzymes ICD Code: R74.8 Status: Acute (5) Diabetes mellitus, type 2 ICD Code: E11.9 Status: Chronic (6) UTI (urinary tract infection) ICD Code: N39.0 Status: Acute Assessment and Plan Patient is a 71-year-old female who came into the hospital under Alves act. As per report, she was put to [facility] with concerns of acute psychosis, she was subsequently referred to our hospital for psychiatric admission. Unknown if patient is compliant with taking Depakote as she was previously seen for psychosis. Patient is now admitted to inpatient medical psychiatric unit. Consulted for medical management. Dementia, schizophrenia, psychosis - management by psychiatry team DM 2 - patient previously on metformin 500 mg twice a day at home. Was not restarted secondary to acute kidney injury which is now resolving. However patient still continued risk for acidosis secondary to poor by mouth intake. - Continue insulin sliding scale. Patient is not eating at times. Continue with insulin sliding scale instead of restarting oral hypoglycemics. - Monitor Accu-Cheks. Monitor for hypoglycemia. - hemoglobin A1c 8.6. Increase Levemir to 10 units daily and adjust per glycemic trends. Hypoglycemic protocol. Difficult to control secondary to erratic oral intake Hypernatremia - possibly caused by IV fluid infusion. DC NS IV fluids. Patient was started D5 IV, will change to D5 half NS +20 MEQ K+. DC IVF - Encourage by mouth intake - sodium 140. - Improved status post IV fluids Transaminitis, elevated liver enzymes - history of elevated AST and ALT. Abdominal examination benign. Possibly chronic. - Hepatitis panel negative - Avoid hepatotoxins. - If worsening, imaging studies can be done. Elevated lipase - 404. - recheck in few days. Urinary tract infection -status post Bactrim and Rocephin - Encourage by mouth fluid intake HTN - elevated BP 150s to 160s, and clonidine when necessary. - low-dose lisinopril 2.5mg daily. - Monitor BP trend Hyperlipidemia - ASCVD risk increase secondary to diabetes, hypertension. However, liver enzymes are elevated and patient right now has poor by mouth intake. - Will hold off on starting patient on statin medication. We will discuss with family members if they are available risk and benefits of medication use. Generalized weakness - PT DVT prop early ambulation Discuss with patient, RN Problem Qualifiers (1) Schizophrenia: Qualified Code: F20.9 - Schizophrenia, unspecified type Anselmo Hall MD Jun 19, 2016 15:08
[2016-06-19 19:11] VITALS: BP 119/58; PULSE 116; RESP 16; TEMP 98; O2SAT 99
[2016-06-20 05:53] VITALS: BP 122/73; PULSE 106; RESP 16; TEMP 98; O2SAT 99
[2016-06-20] MEDS: INSULIN ASPART SUPPLEMENTAL SCALE SQ SCH ×4 (06:08→21:00)
[2016-06-20] MEDS: INSULIN DETEMIR 100 UNITS/ML VIAL SQ SCH (07:56)
[2016-06-20] MEDS: risperiDONE 1 MG TAB PO SCH ×2 (07:59→20:34)
[2016-06-20] MEDS: LISINOPRIL 5 MG TAB PO SCH (08:00)
[2016-06-20] MEDS: DIVALPROEX SODIUM E.R. 500 MG TAB PO SCH ×2 (08:01→20:34)
[2016-06-20] MEDS: PANTOPRAZOLE SOD 20 MG DELAYED RELEASE TAB PO SCH (08:01)
--- NOTE | 2016-06-20 12:38 | HHI.PYPN ---
Subjective Remarks Patient was seen today for psychiatric reevaluation, interview was conducted in Nepali, patient was calm and cooperative, agitated at times, but easily redirectable, patient reports good mood, she says that she is happy to be here, she knows that she is in the hospital, she recognized me as her psychiatrist, she denies suicidal or homicidal ideation, she denies visual and auditory hallucinations. Patient is partially oriented in time and place. Has been medication compliant, no side effects is at this moment. Review of Systems Other No somatic complaints Objective Alert: Yes [place]: Person, Place (partially), Situation Mood: Agitated, Calm Affect: Labile Memory Intact: Immediate, Recent, Comment (unable to assess ) Hallucinations: Other (she denies) Delusions: No Delusion Type: Other (none elicited) Suicidal: Ideation (she denies) Homicidal: Ideation (she denies) Insight/Judgement fair Vitals/IOs Vital Signs Date Time Temp Pulse Resp B/P Pulse Ox O2 Delivery O2 Flow Rate FiO2 06/20/16 05:53 98.0 106 16 122/73 99 Intake and Output 06/19/16 06/19/16 06/20/16 08:00 16:00 00:00 Intake Total 720 ml 720 ml Balance 720 ml 720 ml Assessment & Plan Problem List: (1) Schizophrenia Assessment & Plan: Patient has showed good response to psychotropics and psychotherapy. We will continue monitoring behavior or mood. No changes in psychotropics today. ICD Code: F20.9 Assessment & Plan Estimated LOS: days Justification for Cont. Inpt. Patient is to continue psychiatric hospitalization for stabilization, potential medication adjustment, and to coordinate a safe discharge. Request HC Surrog/Guard Advoc?: Yes Problem Qualifiers (1) Schizophrenia: Qualified Code: F20.9 - Schizophrenia, unspecified type James Herbert MD Jun 20, 2016 12:38
--- NOTE | 2016-06-20 15:04 | HHI.PR ---
Subjective Remarks Follow-up diabetes mellitus. Erratic glucose control secondary to unpredictable oral intake. Patient remains confused. Discussed with RN Objective Vitals Vital Signs Date Time Temp Pulse Resp B/P Pulse Ox O2 Delivery O2 Flow Rate FiO2 06/20/16 05:53 98.0 106 16 122/73 99 06/19/16 19:11 98.0 116 16 119/58 99 I/O 06/19/16 06/19/16 06/19/16 06/20/16 06/20/16 06/20/16 07:00 15:00 23:00 07:00 15:00 23:00 Intake Total 1080 ml 1440 ml 240 ml 960 ml Balance 1080 ml 1440 ml 240 ml 960 ml Intake Oral 1080 ml 1440 ml 240 ml 960 ml # Voids 4 4 3 2 # Bowel Movements 1 0 Result Diagram: 06/16/16 1509 06/16/16 1509 Objective Remarks GENERAL: This is a thin elderly appearing, elderly patient, in no apparent distress. SKIN: No rashes, ecchymoses or lesions. Cool and dry. HEAD: Atraumatic. Normocephalic. No temporal or scalp tenderness. EYES: Extraocular motions intact. No scleral icterus. No injection or drainage. ENT: Nose without bleeding. Throat without erythema. Uvula midline. Airway patent. NECK: Trachea midline. No JVD or lymphadenopathy. Supple, nontender, no meningeal signs. CARDIOVASCULAR: Regular rate and rhythm without murmurs, gallops, or rubs. RESPIRATORY: Clear to auscultation. Breath sounds equal bilaterally. No wheezes , rales, or rhonchi. GASTROINTESTINAL: Abdomen soft, non-tender, nondistended. Active bowel sounds 4. MUSCULOSKELETAL: Extremities without clubbing, cyanosis, or edema. No joint tenderness, effusion, or edema noted. No calf tenderness. Negative Homans sign bilaterally. NEUROLOGICAL: Awake and alert. Confused but follows commands. Moves all extremities. Nonfocal A/P Problem List: (1) Schizophrenia ICD Code: F20.9 Status: Acute (2) HTN (hypertension) ICD Code: I10 Status: Chronic (3) Acute kidney injury ICD Code: N17.9 Status: Acute (4) Elevated liver enzymes ICD Code: R74.8 Status: Acute (5) Diabetes mellitus, type 2 ICD Code: E11.9 Status: Chronic (6) UTI (urinary tract infection) ICD Code: N39.0 Status: Acute Assessment and Plan Patient is a 71-year-old female who came into the hospital under Alves act. As per report, she was put to [facility] with concerns of acute psychosis, she was subsequently referred to our hospital for psychiatric admission. Unknown if patient is compliant with taking Depakote as she was previously seen for psychosis. Patient is now admitted to inpatient medical psychiatric unit. Consulted for medical management. Dementia, schizophrenia, psychosis - management by psychiatry team DM 2 - patient previously on metformin 500 mg twice a day at home. Was not restarted secondary to acute kidney injury which is now resolving. However patient still continued risk for acidosis secondary to poor by mouth intake. - Continue insulin sliding scale. Patient is not eating at times. Continue with insulin sliding scale instead of restarting oral hypoglycemics. - Monitor Accu-Cheks. Monitor for hypoglycemia. - hemoglobin A1c 8.6. Increase Levemir to 10 units daily and adjust per glycemic trends. Hypoglycemic protocol. Difficult to control secondary to erratic oral intake - Start Novolog 3 Units with breakfast- continue to monitor closely Hypernatremia - possibly caused by IV fluid infusion. DC NS IV fluids. Patient was started D5 IV, will change to D5 half NS +20 MEQ K+. DC IVF - Encourage by mouth intake - sodium 140. - Improved status post IV fluids Transaminitis, elevated liver enzymes - history of elevated AST and ALT. Abdominal examination benign. Possibly chronic. - Hepatitis panel negative - Avoid hepatotoxins. - If worsening, imaging studies can be done. Elevated lipase - 404. - recheck in few days. Urinary tract infection -status post Bactrim and Rocephin - Encourage by mouth fluid intake HTN - improved - low-dose lisinopril 2.5mg daily. - Monitor BP trend Hyperlipidemia - ASCVD risk increase secondary to diabetes, hypertension. However, liver enzymes are elevated and patient right now has poor by mouth intake. - Will hold off on starting patient on statin medication. We will discuss with family members if they are available risk and benefits of medication use. Generalized weakness - PT DVT prop early ambulation Patient medically stable to transfer to psychiatric unit Discuss with patient, RN Written by Yumiko Bocanegra, acting as scribe for Dr. Hall on 06/20/16 at 15:03. The documentation accurately reflects the work performed [id number] by me on at 15:49. Problem Qualifiers (1) Schizophrenia: Qualified Code: F20.9 - Schizophrenia, unspecified type Yumiko Bocanegra Jun 20, 2016 15:04 Anselmo Hall MD Jun 20, 2016 15:49
[2016-06-20 19:34] VITALS: BP 151/61; PULSE 113; RESP 16; TEMP 98.6; O2SAT 100
[2016-06-21 05:58] VITALS: BP 144/64; PULSE 103; RESP 15; TEMP 97.6; O2SAT 98
[2016-06-21] MEDS: INSULIN ASPART SUPPLEMENTAL SCALE SQ SCH ×4 (06:33→20:48)
[2016-06-21] MEDS: INSULIN ASPART 1,000 UNITS/10 ML VIAL SQ SCH (07:00)
[2016-06-21] MEDS: INSULIN DETEMIR 100 UNITS/ML VIAL SQ SCH (08:00)
[2016-06-21] MEDS: LISINOPRIL 5 MG TAB PO SCH (08:01)
[2016-06-21] MEDS: DIVALPROEX SODIUM E.R. 500 MG TAB PO SCH ×2 (08:02→20:45)
[2016-06-21] MEDS: risperiDONE 1 MG TAB PO SCH ×2 (08:02→20:45)
[2016-06-21] MEDS: PANTOPRAZOLE SOD 20 MG DELAYED RELEASE TAB PO SCH (08:05)
--- NOTE | 2016-06-21 09:22 | HHI.PR ---
Subjective Remarks Follow-up diabetes mellitus. Erratic diabetic control secondary to unpredictable oral intake. Patient remains confused and speaks in Micronesian and Haitian. Discussed with RN Objective Vitals Vital Signs Date Time Temp Pulse Resp B/P Pulse Ox O2 Delivery O2 Flow Rate FiO2 06/21/16 05:58 97.6 103 15 144/64 98 06/20/16 19:34 98.6 113 16 151/61 100 I/O 06/20/16 06/20/16 06/20/16 06/21/16 06/21/16 06/21/16 07:00 15:00 23:00 07:00 15:00 23:00 Intake Total 240 ml 960 ml 720 ml 240 ml Balance 240 ml 960 ml 720 ml 240 ml Intake Oral 240 ml 960 ml 720 ml 240 ml # Voids 3 2 2 1 # Bowel Movements 1 0 0 Objective Remarks GENERAL: This is a thin elderly appearing, elderly patient, in no apparent distress. SKIN: No rashes, ecchymoses or lesions. Cool and dry. HEAD: Atraumatic. Normocephalic. No temporal or scalp tenderness. EYES: Extraocular motions intact. No scleral icterus. No injection or drainage. ENT: Nose without bleeding. Throat without erythema. Uvula midline. Airway patent. NECK: Trachea midline. No JVD or lymphadenopathy. Supple, nontender, no meningeal signs. CARDIOVASCULAR: Regular rate and rhythm without murmurs, gallops, or rubs. RESPIRATORY: Clear to auscultation. Breath sounds equal bilaterally. No wheezes , rales, or rhonchi. GASTROINTESTINAL: Abdomen soft, non-tender, nondistended. Active bowel sounds 4. MUSCULOSKELETAL: Extremities without clubbing, cyanosis, or edema. No joint tenderness, effusion, or edema noted. No calf tenderness. Negative Homans sign bilaterally. NEUROLOGICAL: Awake and alert. Confused but follows commands. Moves all extremities. A/P Problem List: (1) Schizophrenia ICD Code: F20.9 Status: Acute (2) HTN (hypertension) ICD Code: I10 Status: Chronic (3) Acute kidney injury ICD Code: N17.9 Status: Acute (4) Elevated liver enzymes ICD Code: R74.8 Status: Acute (5) Diabetes mellitus, type 2 ICD Code: E11.9 Status: Chronic (6) UTI (urinary tract infection) ICD Code: N39.0 Status: Acute Assessment and Plan Patient is a 71-year-old female who came into the hospital under Alves act. As per report, she was put to [facility] with concerns of acute psychosis, she was subsequently referred to our hospital for psychiatric admission. Unknown if patient is compliant with taking Depakote as she was previously seen for psychosis. Patient is now admitted to inpatient medical psychiatric unit. Consulted for medical management. Dementia, schizophrenia, psychosis - management by psychiatry team DM 2 - patient previously on metformin 500 mg twice a day at home. Was not restarted secondary to acute kidney injury which is now resolving. However patient still continued risk for acidosis secondary to poor by mouth intake. - Continue insulin sliding scale. Patient is not eating at times. Continue with insulin sliding scale instead of restarting oral hypoglycemics. - Monitor Accu-Cheks. Monitor for hypoglycemia. - hemoglobin A1c 8.6. Increase Levemir to 10 units daily and adjust per glycemic trends. Hypoglycemic protocol. Difficult to control secondary to inconsistent oral intake -Continue Novolog 3 Units with breakfast- continue to monitor closely Hypernatremia - possibly caused by IV fluid infusion. DC NS IV fluids. Patient was started D5 IV, will change to D5 half NS +20 MEQ K+. DC IVF - Encourage by mouth intake - sodium 140. - Improved status post IV fluids Transaminitis, elevated liver enzymes - history of elevated AST and ALT. Abdominal examination benign. Possibly chronic. - Hepatitis panel negative - Avoid hepatotoxins. - If worsening, imaging studies can be done. Elevated lipase - 404. - recheck in few days. Urinary tract infection -status post Bactrim and Rocephin - Encourage by mouth fluid intake HTN - improved - low-dose lisinopril 2.5mg daily. - Monitor BP trend Hyperlipidemia - ASCVD risk increase secondary to diabetes, hypertension. However, liver enzymes are elevated and patient right now has poor by mouth intake. - Will hold off on starting patient on statin medication. We will discuss with family members if they are available risk and benefits of medication use. Generalized weakness - PT DVT prop early ambulation Patient medically stable to transfer to psychiatric unit Problem Qualifiers (1) Schizophrenia: Qualified Code: F20.9 - Schizophrenia, unspecified type Anselmo Hall MD Jun 21, 2016 09:22
[2016-06-21 16:15] VITALS: BP 141/66; PULSE 110; RESP 16; TEMP 97.7; O2SAT 100
--- NOTE | 2016-06-21 16:22 | HHI.PYPN ---
Subjective Remarks Patient was seen today for psychiatric reevaluation, she was found in her room watching TV, she was in a very good mood, she says that she is happy to be here , she even sang a song in Norwegian, she denies suicidal or homicidal ideation, she denies visual and auditory hallucinations. Patient is medication compliant, no significant side effects reported. No episodes of agitation, aggressive behavior reported. Patient is oriented 3. Review of Systems Other No somatic complaints Objective Alert: Yes [place]: Person, Place (partially), Situation Mood: Agitated, Calm Affect: Labile Memory Intact: Immediate, Recent, Comment (unable to assess ) Hallucinations: Other (she denies) Delusions: No Delusion Type: Other (none elicited) Suicidal: Ideation (she denies) Homicidal: Ideation (she denies) Insight/Judgement fair Vitals/IOs Vital Signs Date Time Temp Pulse Resp B/P Pulse Ox O2 Delivery O2 Flow Rate FiO2 06/21/16 05:58 97.6 103 15 144/64 98 Intake and Output 06/20/16 06/20/16 06/21/16 08:00 16:00 00:00 Intake Total 240 ml 960 ml 720 ml Balance 240 ml 960 ml 720 ml Assessment & Plan Problem List: (1) Schizophrenia Assessment & Plan: Patient will continue the process of psychiatric hospitalization for stabilization, and also to continue to coordination of safe discharge ICD Code: F20.9 Assessment & Plan Estimated LOS: days Justification for Cont. Inpt. Patient needs psychiatric stabilization Request HC Surrog/Guard Advoc?: Yes Problem Qualifiers (1) Schizophrenia: Qualified Code: F20.9 - Schizophrenia, unspecified type James Herbert MD Jun 21, 2016 16:22
[2016-06-21 20:18] VITALS: BP 117/56; PULSE 116; RESP 17; TEMP 97.3; O2SAT 97
[2016-06-21] MEDS: LORazepam 1 MG TAB PO PRN (20:45)
[2016-06-22 06:14] VITALS: BP 139/65; PULSE 108; RESP 16; TEMP 98; O2SAT 100
--- NOTE | 2016-06-22 07:45 | HHI.PR ---
Subjective Remarks Follow-up diabetes mellitus. Hyperglycemic yesterday. Tachycardic secondary to agitation. Discussed with RN and psychiatry. Objective Vitals Vital Signs Date Time Temp Pulse Resp B/P Pulse Ox O2 Delivery O2 Flow Rate FiO2 06/22/16 06:14 98.0 108 16 139/65 100 06/21/16 20:18 97.3 116 17 117/56 97 06/21/16 16:15 97.7 110 16 141/66 100 I/O 06/21/16 06/21/16 06/21/16 06/22/16 06/22/16 06/22/16 06:59 14:59 22:59 06:59 14:59 22:59 Intake Total 240 ml 680 ml Output Total 1 ml Balance 240 ml 679 ml Intake Oral 240 ml 680 ml Output Stool Total 1 ml # Voids 1 3 # Bowel Movements 0 Objective Remarks GENERAL: This is a thin elderly appearing, elderly patient, in no apparent distress. SKIN: No rashes, ecchymoses or lesions. Cool and dry. HEAD: Atraumatic. Normocephalic. No temporal or scalp tenderness. EYES: Extraocular motions intact. No scleral icterus. No injection or drainage. ENT: Nose without bleeding. Throat without erythema. Uvula midline. Airway patent. NECK: Trachea midline. No JVD or lymphadenopathy. Supple, nontender, no meningeal signs. CARDIOVASCULAR: Mildly tachycardic RESPIRATORY: Clear to auscultation. Breath sounds equal bilaterally. No wheezes , rales, or rhonchi. GASTROINTESTINAL: Abdomen soft, non-tender, nondistended. Active bowel sounds 4. MUSCULOSKELETAL: Extremities without clubbing, cyanosis, or edema. No joint tenderness, effusion, or edema noted. No calf tenderness. Negative Homans sign bilaterally. NEUROLOGICAL: Awake and alert. Confused but follows commands. Slightly manic. Moves all extremities. A/P Problem List: (1) Schizophrenia ICD Code: F20.9 Status: Acute (2) HTN (hypertension) ICD Code: I10 Status: Chronic (3) Acute kidney injury ICD Code: N17.9 Status: Acute (4) Elevated liver enzymes ICD Code: R74.8 Status: Acute (5) Diabetes mellitus, type 2 ICD Code: E11.9 Status: Chronic (6) UTI (urinary tract infection) ICD Code: N39.0 Status: Acute Assessment and Plan Patient is a 71-year-old female who came into the hospital under Alves act. As per report, she was put to [facility] with concerns of acute psychosis, she was subsequently referred to our hospital for psychiatric admission. Unknown if patient is compliant with taking Depakote as she was previously seen for psychosis. Patient is now admitted to inpatient medical psychiatric unit. Consulted for medical management. Dementia, schizophrenia, psychosis - management by psychiatry team DM 2 - patient previously on metformin 500 mg twice a day at home. Was not restarted secondary to acute kidney injury which is now resolving. However patient still continued risk for acidosis secondary to poor by mouth intake. - Continue insulin sliding scale. Patient is not eating at times. Continue with insulin sliding scale instead of restarting oral hypoglycemics. - Monitor Accu-Cheks. Monitor for hypoglycemia. - hemoglobin A1c 8.6. Hyperglycemic increase Levemir to 15 units daily and adjust per glycemic trends. Hypoglycemic protocol. Difficult to control secondary to inconsistent oral intake - Continue Novolog 3 Units with breakfast- continue to monitor closely Hypernatremia - possibly caused by IV fluid infusion. DC NS IV fluids. Patient was started D5 IV, will change to D5 half NS +20 MEQ K+. DC IVF - Encourage by mouth intake - sodium 140. - Improved status post IV fluids Transaminitis, elevated liver enzymes - history of elevated AST and ALT. Abdominal examination benign. Possibly chronic. - Hepatitis panel negative - Avoid hepatotoxins. - If worsening, imaging studies can be done. Elevated lipase - 404. - recheck in few days. Urinary tract infection -status post Bactrim and Rocephin - Encourage by mouth fluid intake HTN - improved - low-dose lisinopril 2.5mg daily. - Monitor BP trend Hyperlipidemia - ASCVD risk increase secondary to diabetes, hypertension. However, liver enzymes are elevated and patient right now has poor by mouth intake. - Will hold off on starting patient on statin medication. We will discuss with family members if they are available risk and benefits of medication use. Generalized weakness - PT DVT prop early ambulation Patient medically stable to transfer to psychiatric unit Problem Qualifiers (1) Schizophrenia: Qualified Code: F20.9 - Schizophrenia, unspecified type Anselmo Hall MD Jun 22, 2016 07:45
[2016-06-22] MEDS: PANTOPRAZOLE SOD 20 MG DELAYED RELEASE TAB PO SCH (08:38)
[2016-06-22] MEDS: risperiDONE 1 MG TAB PO SCH ×2 (08:38→19:57)
[2016-06-22] MEDS: INSULIN DETEMIR 100 UNITS/ML VIAL SQ SCH (08:39)
[2016-06-22] MEDS: INSULIN ASPART SUPPLEMENTAL SCALE SQ SCH ×4 (08:39→19:56)
[2016-06-22] MEDS: DIVALPROEX SODIUM E.R. 500 MG TAB PO SCH ×2 (08:39→19:57)
[2016-06-22] MEDS: LISINOPRIL 5 MG TAB PO SCH (08:39)
[2016-06-22] MEDS: INSULIN ASPART 1,000 UNITS/10 ML VIAL SQ SCH (08:39)
--- NOTE | 2016-06-22 15:02 | HHI.PYPN ---
Subjective Remarks Patient was seen today for psychiatric reevaluation, she was found sitting in a chair in the in the [place] of the unit, she was calm, cooperative, pleasant, singing songs in , she says that she is in a good mood, happy to be year , denies depressive symptoms, denies anxiety, denies brinda, denies psychosis. She denies suicidal or homicidal ideation. Patient is oriented 3, a little disorganized at times, but mostly redirectable. Compliant with medications. Review of Systems Other No somatic complaints Objective Alert: Yes [place]: Person, Place (partially), Situation Mood: Agitated, Calm Affect: Labile Memory Intact: Immediate, Recent, Comment (unable to assess ) Hallucinations: Other (she denies) Delusions: No Delusion Type: Other (none elicited) Suicidal: Ideation (she denies) Homicidal: Ideation (she denies) Insight/Judgement fair Vitals/IOs Vital Signs Date Time Temp Pulse Resp B/P Pulse Ox O2 Delivery O2 Flow Rate FiO2 06/22/16 06:14 98.0 108 16 139/65 100 Intake and Output 06/21/16 06/21/16 06/22/16 08:00 16:00 00:00 Intake Total 240 ml 680 ml Balance 240 ml 680 ml Assessment & Plan Problem List: (1) Schizophrenia ICD Code: F20.9 Assessment & Plan Estimated LOS: days Justification for Cont. Inpt. Patient will continue psychiatric hospitalization for stabilization and coordination of safety discharge. Request HC Surrog/Guard Advoc?: Yes Problem Qualifiers (1) Schizophrenia: Qualified Code: F20.9 - Schizophrenia, unspecified type James Herbert MD Jun 22, 2016 15:02
[2016-06-22 19:44] VITALS: BP 116/54; PULSE 109; RESP 16; TEMP 98.1; O2SAT 98
[2016-06-22] MEDS: LORazepam 1 MG TAB PO PRN (19:57)
[2016-06-23 06:10] VITALS: BP 129/60; PULSE 104; RESP 18; TEMP 97.6; O2SAT 99
[2016-06-23] MEDS: INSULIN ASPART SUPPLEMENTAL SCALE SQ SCH ×4 (06:11→21:30)
[2016-06-23] MEDS: INSULIN ASPART 1,000 UNITS/10 ML VIAL SQ SCH ×2 (07:00→16:41)
[2016-06-23] MEDS: INSULIN DETEMIR 100 UNITS/ML VIAL SQ SCH (08:00)
[2016-06-23] MEDS: PANTOPRAZOLE SOD 20 MG DELAYED RELEASE TAB PO SCH (08:54)
[2016-06-23] MEDS: DIVALPROEX SODIUM E.R. 500 MG TAB PO SCH ×2 (08:54→21:30)
[2016-06-23] MEDS: LISINOPRIL 5 MG TAB PO SCH (08:54)
[2016-06-23] MEDS: risperiDONE 1 MG TAB PO SCH ×2 (09:00→21:30)
--- NOTE | 2016-06-23 09:52 | HHI.PR ---
Subjective Remarks F/u DM. Hyperglycemic HS started preprandial dinner. No complaints dw RN Objective Vitals Vital Signs Date Time Temp Pulse Resp B/P Pulse Ox O2 Delivery O2 Flow Rate FiO2 06/23/16 06:10 97.6 104 18 129/60 99 06/22/16 19:44 98.1 109 16 116/54 98 I/O 06/22/16 06/22/16 06/22/16 06/23/16 06/23/16 06/23/16 07:00 15:00 23:00 07:00 15:00 23:00 Intake Total 680 ml 1200 ml 1080 ml 0 ml Output Total 1 ml Balance 679 ml 1200 ml 1080 ml 0 ml Intake Oral 680 ml 1200 ml 1080 ml 0 ml Output Stool Total 1 ml # Voids 3 3 2 1 # Bowel Movements 0 1 0 Objective Remarks GENERAL: This is a thin elderly appearing, elderly patient, in no apparent distress. SKIN: No rashes, ecchymoses or lesions. Cool and dry. HEAD: Atraumatic. Normocephalic. No temporal or scalp tenderness. EYES: Extraocular motions intact. No scleral icterus. No injection or drainage. ENT: Nose without bleeding. Throat without erythema. Uvula midline. Airway patent. NECK: Trachea midline. No JVD or lymphadenopathy. Supple, nontender, no meningeal signs. CARDIOVASCULAR: Mildly tachycardic RESPIRATORY: Clear to auscultation. Breath sounds equal bilaterally. No wheezes , rales, or rhonchi. GASTROINTESTINAL: Abdomen soft, non-tender, nondistended. Active bowel sounds 4. MUSCULOSKELETAL: Extremities without clubbing, cyanosis, or edema. No joint tenderness, effusion, or edema noted. No calf tenderness. Negative Homans sign bilaterally. NEUROLOGICAL: Awake and alert. Confused but follows commands. Moves all extremities. A/P Problem List: (1) Schizophrenia ICD Code: F20.9 Status: Acute (2) HTN (hypertension) ICD Code: I10 Status: Chronic (3) Acute kidney injury ICD Code: N17.9 Status: Acute (4) Elevated liver enzymes ICD Code: R74.8 Status: Acute (5) Diabetes mellitus, type 2 ICD Code: E11.9 Status: Chronic (6) UTI (urinary tract infection) ICD Code: N39.0 Status: Acute Assessment and Plan Patient is a 71-year-old female who came into the hospital under Alves act. As per report, she was put to [facility] with concerns of acute psychosis, she was subsequently referred to our hospital for psychiatric admission. Unknown if patient is compliant with taking Depakote as she was previously seen for psychosis. Patient is now admitted to inpatient medical psychiatric unit. Consulted for medical management. Dementia, schizophrenia, psychosis - management by psychiatry team DM 2 - patient previously on metformin 500 mg twice a day at home. Was not restarted secondary to acute kidney injury which is now resolving. However patient still continued risk for acidosis secondary to poor by mouth intake. - Continue insulin sliding scale instead of restarting oral hypoglycemics. - Monitor Accu-Cheks. Monitor for hypoglycemia. - hemoglobin A1c 8.6. Hyperglycemic ct Levemir to 15 units daily and adjust per glycemic trends. Hypoglycemic protocol. Difficult to control secondary to inconsistent oral intake - Continue Novolog 3 Units with breakfast and start preprandial dinner 3 units Hypernatremia - possibly caused by IV fluid infusion. DC NS IV fluids. - Encourage by mouth intake - sodium 140. - Improved status post IV fluids Transaminitis, elevated liver enzymes - history of elevated AST and ALT. Abdominal examination benign. Possibly chronic. - Hepatitis panel negative - Avoid hepatotoxins. - If worsening, imaging studies can be done. Elevated lipase - 404. Denies abdominal pain Urinary tract infection -status post Bactrim and Rocephin - Encourage by mouth fluid intake HTN - improved - low-dose lisinopril 2.5mg daily. - Monitor BP trend Hyperlipidemia - ASCVD risk increase secondary to diabetes, hypertension. However, liver enzymes are elevated and patient right now has poor by mouth intake. - Will hold off on starting patient on statin medication. We will discuss with family members if they are available risk and benefits of medication use. Generalized weakness - PT DVT prop early ambulation Patient medically stable to transfer to psychiatric unit Problem Qualifiers (1) Schizophrenia: Qualified Code: F20.9 - Schizophrenia, unspecified type Anselmo Hall MD Jun 23, 2016 09:52
--- NOTE | 2016-06-23 12:37 | HHI.PYPN ---
Subjective Remarks Patient remains pleasant and cooperative. No obvious or significant signs of psychoses. She is compliant with medications and cooperative with staff. She continues to primarily speak in Dominican and occasionally will sing to herself in Dominican. Review of Systems Except as stated in HPI: all other systems reviewed are Neg Objective Alert: Yes [place]: Person, Place (partially), Situation Mood: Agitated, Calm Affect: Labile Memory Intact: Immediate, Recent, Comment (unable to assess ) Hallucinations: Other (she denies) Delusions: No Delusion Type: Other (none elicited) Suicidal: Ideation (she denies) Homicidal: Ideation (she denies) Insight/Judgement Mildly impaired but felt to be baseline. Vitals/IOs Vital Signs Date Time Temp Pulse Resp B/P Pulse Ox O2 Delivery O2 Flow Rate FiO2 06/23/16 06:10 97.6 104 18 129/60 99 Intake and Output 06/22/16 06/22/16 06/23/16 08:00 16:00 00:00 Intake Total 1200 ml 1080 ml Output Total 1 ml Balance -1 ml 1200 ml 1080 ml Assessment & Plan Problem List: (1) Schizophrenia ICD Code: F20.9 Assessment & Plan Estimated LOS: days patient continues to require care for both her physical medical and psychiatric issues. Justification for Cont. Inpt. Patient is unable to care for herself. Request HC Surrog/Guard Advoc?: Yes Problem Qualifiers (1) Schizophrenia: Qualified Code: F20.9 - Schizophrenia, unspecified type Irivn Pineda MD Jun 23, 2016 12:37
[2016-06-23] MEDS: ALUMINUM/MAGNESIUM/SIMETH 30 ML CUP PO PRN (15:21)
[2016-06-23 18:00] VITALS: BP 112/58; PULSE 106; RESP 16; TEMP 98; O2SAT 99
[2016-06-23] MEDS: LORazepam 1 MG TAB PO PRN (22:06)
[2016-06-24] MEDS: INSULIN ASPART SUPPLEMENTAL SCALE SQ SCH ×4 (06:20→21:29)
[2016-06-24 06:40] VITALS: BP 131/60; PULSE 96; RESP 16; TEMP 98.6; O2SAT 100
[2016-06-24] MEDS: INSULIN ASPART 1,000 UNITS/10 ML VIAL SQ SCH ×2 (07:00→16:07)
[2016-06-24] MEDS: INSULIN DETEMIR 100 UNITS/ML VIAL SQ SCH (08:00)
[2016-06-24] MEDS: risperiDONE 1 MG TAB PO SCH ×2 (09:00→21:21)
[2016-06-24] MEDS: LISINOPRIL 5 MG TAB PO SCH (09:00)
[2016-06-24] MEDS: DIVALPROEX SODIUM E.R. 500 MG TAB PO SCH ×2 (09:00→21:21)
[2016-06-24] MEDS: PANTOPRAZOLE SOD 20 MG DELAYED RELEASE TAB PO SCH (09:00)
--- NOTE | 2016-06-24 12:00 | HHI.PYPN ---
Subjective Remarks Patient was seen and case discussed with nursing. Patient is pleasant and cooperative with exam. She says she likes it better and this unit because the nurses can understand her. She is able to communicate in Pashto but is limited. She is alert and oriented 1 denies auditory or visualizations. Compliant with medications. Taking showers Objective Alert: Yes [place]: Person, Place (partially), Situation Mood: Agitated, Calm Affect: Labile Memory Intact: Immediate, Recent, Comment (unable to assess ) Hallucinations: Other (she denies) Delusions: No Delusion Type: Other (none elicited) Suicidal: Ideation (she denies) Homicidal: Ideation (she denies) Insight/Judgement Poor Vitals/IOs Vital Signs Date Time Temp Pulse Resp B/P Pulse Ox O2 Delivery O2 Flow Rate FiO2 06/24/16 06:40 98.6 96 16 131/60 100 Intake and Output 06/23/16 06/23/16 06/24/16 08:00 16:00 00:00 Intake Total 0 ml 1560 ml Balance 0 ml 1560 ml Assessment & Plan Problem List: (1) Schizophrenia ICD Code: F20.9 Assessment & Plan Continue current treatment plan Justification for Cont. Inpt. Patient will decompensate in a less restrictive setting Request HC Surrog/Guard Advoc?: Yes Problem Qualifiers (1) Schizophrenia: Qualified Code: F20.9 - Schizophrenia, unspecified type Dany Mcgee DO Jun 24, 2016 12:00
[2016-06-24] MEDS: ALUMINUM/MAGNESIUM/SIMETH 30 ML CUP PO PRN (15:29)
[2016-06-24 18:00] VITALS: BP 124/59; PULSE 104; RESP 16; TEMP 98.7; O2SAT 98
[2016-06-24] MEDS: ACETAMINOPHEN 325 MG TAB PO PRN (21:21)
[2016-06-25] MEDS: INSULIN ASPART SUPPLEMENTAL SCALE SQ SCH ×4 (06:14→21:00)
[2016-06-25 06:37] VITALS: PULSE 105; RESP 17; TEMP 98.7; O2SAT 100
[2016-06-25] MEDS: INSULIN ASPART 1,000 UNITS/10 ML VIAL SQ SCH ×3 (07:30→16:09)
[2016-06-25] MEDS: INSULIN DETEMIR 100 UNITS/ML VIAL SQ SCH (08:00)
[2016-06-25] MEDS: PANTOPRAZOLE SOD 20 MG DELAYED RELEASE TAB PO SCH (08:21)
[2016-06-25] MEDS: DIVALPROEX SODIUM E.R. 500 MG TAB PO SCH ×2 (08:21→20:49)
[2016-06-25] MEDS: risperiDONE 1 MG TAB PO SCH ×2 (08:21→20:49)
[2016-06-25] MEDS: LISINOPRIL 5 MG TAB PO SCH (08:30)
--- NOTE | 2016-06-25 10:53 | HHI.PR ---
Subjective Remarks Follow up DM. Patient sitting in day room in [facility]- appears to be in no acute distress. Offers no medical complaints. Denies SOB, chest pain, N/V/D/C , fevers or chills. Objective Vitals Vital Signs Date Time Temp Pulse Resp B/P Pulse Ox O2 Delivery O2 Flow Rate FiO2 06/25/16 06:37 98.7 105 17 100 06/24/16 22:21 18 06/24/16 18:00 98.7 104 16 124/59 98 I/O 06/24/16 06/24/16 06/24/16 06/25/16 06/25/16 06/25/16 07:00 15:00 23:00 07:00 15:00 23:00 Intake Total 0 ml 720 ml 1200 ml 0 ml Balance 0 ml 720 ml 1200 ml 0 ml Intake Oral 0 ml 720 ml 1200 ml 0 ml # Voids 2 1 2 # Bowel Movements 0 0 Objective Remarks GENERAL: This is a thin elderly appearing, elderly patient, in no apparent distress. SKIN: No rashes, ecchymoses or lesions. Cool and dry. HEAD: Atraumatic. Normocephalic. No temporal or scalp tenderness. EYES: Extraocular motions intact. No scleral icterus. No injection or drainage. CARDIOVASCULAR: Regular rate and rhythm without murmurs, gallops, or rubs. RESPIRATORY: Clear to auscultation. Breath sounds equal bilaterally. No wheezes , rales, or rhonchi. GASTROINTESTINAL: Abdomen soft, non-tender, nondistended. Active bowel sounds 4. MUSCULOSKELETAL: Extremities without clubbing, cyanosis, or edema. No joint tenderness, effusion, or edema noted. No calf tenderness. Negative Homans sign bilaterally. NEUROLOGICAL: Awake and alert. pleasantly confused Moves all extremities. Nonfocal A/P Problem List: (1) Schizophrenia ICD Code: F20.9 Status: Acute (2) HTN (hypertension) ICD Code: I10 Status: Chronic (3) Acute kidney injury ICD Code: N17.9 Status: Acute (4) Elevated liver enzymes ICD Code: R74.8 Status: Acute (5) Diabetes mellitus, type 2 ICD Code: E11.9 Status: Chronic (6) UTI (urinary tract infection) ICD Code: N39.0 Status: Acute Assessment and Plan Patient is a 71-year-old female who came into the hospital under Alves act. As per report, she was put to [facility] with concerns of acute psychosis, she was subsequently referred to our hospital for psychiatric admission. Unknown if patient is compliant with taking Depakote as she was previously seen for psychosis. Patient is now admitted to inpatient medical psychiatric unit. Consulted for medical management. Dementia, schizophrenia, psychosis - management by psychiatry team DM 2- uncontrolled - patient previously on metformin 500 mg twice a day at home. Was not restarted secondary to acute kidney injury which is now resolving. - Continue insulin sliding scale. - Monitor Accu-Cheks. - hemoglobin A1c 8.6. - continue Levemir to 15 units daily Hypoglycemic protocol. - increase Novolog to 5 Units with meals- continue to monitor closely Transaminitis, elevated liver enzymes - history of elevated AST and ALT. Abdominal examination benign. Possibly chronic. - Hepatitis panel negative - Avoid hepatotoxins. - If worsening, imaging studies can be done. Elevated lipase - 404. - recheck in few days. Urinary tract infection -status post Bactrim and Rocephin - Encourage by mouth fluid intake HTN - improved - low-dose lisinopril 2.5mg daily. - Monitor BP trend Hyperlipidemia - ASCVD risk increase secondary to diabetes, hypertension. However, liver enzymes are elevated and patient right now has poor by mouth intake. - Will hold off on starting patient on statin medication. We will discuss with family members if they are available risk and benefits of medication use. Generalized weakness - PT DVT prop early ambulation Discussed with patient and nursing Written by Yumiko Bocanegra, acting as scribe for Dr. Vargas on 06/25/16 at 10:53. Attending Statement The documentation accurately reflects the work performed [id number] by me on at 10:53. Problem Qualifiers (1) Schizophrenia: Qualified Code: F20.9 - Schizophrenia, unspecified type Yumiko Bocanegra Jun 25, 2016 10:53 Geoff Borges MD Jun 29, 2016 22:53
--- NOTE | 2016-06-25 13:11 | HHI.PYPN ---
Subjective Remarks Patient was seen and case discussed with nursing. Patient is pleasant and interactive during the interview. Alert and oriented 2. Bright and cheerful. Remains generally disorganized. Poor insight. Compliant with medications Objective Alert: Yes [place]: Person, Place (partially), Situation Mood: Agitated, Calm Affect: Labile Memory Intact: Immediate, Recent, Comment (unable to assess ) Hallucinations: Other (she denies) Delusions: No Delusion Type: Other (none elicited) Suicidal: Ideation (she denies) Homicidal: Ideation (she denies) Insight/Judgement Poor Vitals/IOs Vital Signs Date Time Temp Pulse Resp B/P Pulse Ox O2 Delivery O2 Flow Rate FiO2 06/25/16 06:37 98.7 105 17 100 06/24/16 18:00 124/59 Intake and Output 06/24/16 06/24/16 06/25/16 08:00 16:00 00:00 Intake Total 240 ml 480 ml 1200 ml Balance 240 ml 480 ml 1200 ml Assessment & Plan Problem List: (1) Schizophrenia ICD Code: F20.9 Assessment & Plan Continue current treatment plan Justification for Cont. Inpt. Patient will decompensate in a less restrictive setting Request HC Surrog/Guard Advoc?: Yes Problem Qualifiers (1) Schizophrenia: Qualified Code: F20.9 - Schizophrenia, unspecified type Dany Mcgee DO Jun 25, 2016 13:11
[2016-06-25] MEDS: ACETAMINOPHEN 325 MG TAB PO PRN ×2 (14:52→20:49)
[2016-06-25 16:40] VITALS: BP 119/64; PULSE 101; RESP 17; TEMP 98.2; O2SAT 98
[2016-06-26] MEDS: ACETAMINOPHEN 325 MG TAB PO PRN (04:18)
[2016-06-26] MEDS: LORazepam 0.5 MG TAB PO PRN (04:18)
[2016-06-26 05:53] VITALS: BP 135/60; PULSE 95; RESP 16; TEMP 98.2; O2SAT 98
[2016-06-26] MEDS: INSULIN ASPART 1,000 UNITS/10 ML VIAL SQ SCH ×4 (06:26→17:30)
[2016-06-26] MEDS: INSULIN ASPART SUPPLEMENTAL SCALE SQ SCH ×4 (07:00→20:41)
[2016-06-26] MEDS: LISINOPRIL 5 MG TAB PO SCH (09:05)
[2016-06-26] MEDS: risperiDONE 1 MG TAB PO SCH ×2 (09:05→20:39)
[2016-06-26] MEDS: PANTOPRAZOLE SOD 20 MG DELAYED RELEASE TAB PO SCH (09:05)
[2016-06-26] MEDS: DIVALPROEX SODIUM E.R. 500 MG TAB PO SCH ×2 (09:06→20:39)
[2016-06-26] MEDS: INSULIN DETEMIR 100 UNITS/ML VIAL SQ SCH (09:08)
--- NOTE | 2016-06-26 14:28 | HHI.PR ---
Blank section for building Chart reviewed, blood sugar improved on current regiment. Patient appears medically stable will sign off. If patient's condition changes or further assistance is needed please reconsult. Recommend patient follow up with PCP after DC Written by Yumiko Bocanegra, acting as scribe for Dr. Vargas on 06/26/16 at 14:27. Yumiko Bocanegra Jun 26, 2016 14:28
[2016-06-26] MEDS ORDERED: LEVEMIR SQ (14:35)
[2016-06-26] MEDS ORDERED: NOVOLOGP2 SQ ×2 (14:35)
[2016-06-26] MEDS ORDERED: [UNRECOGNIZED DRUG - CODE] (14:35)
[2016-06-26] MEDS ORDERED: ONETKIT11 (14:35)
--- NOTE | 2016-06-26 15:55 | HHI.PYPN ---
Subjective Remarks Patient discussed with treatment team, and medical student Apoorva, chart reviewed , patient seen on unit. Patient continues to be confused demented but at this time the Cipro behavioral problems, compliant medications. For now continue treatment continued await possible placement [facility] level next 24-48 hours Review of Systems Except as stated in HPI: all other systems reviewed are Neg Objective Alert: Yes [place]: Person, Place (partially), Situation Mood: Agitated, Calm Affect: Labile Memory Intact: Immediate, Recent, Comment (unable to assess ) Hallucinations: Other (she denies) Delusions: No Delusion Type: Other (none elicited) Suicidal: Ideation (she denies) Homicidal: Ideation (she denies) Insight/Judgement Very poor Vitals/IOs Vital Signs Date Time Temp Pulse Resp B/P Pulse Ox O2 Delivery O2 Flow Rate FiO2 06/26/16 05:53 98.2 95 16 135/60 98 Intake and Output 06/25/16 06/25/16 06/26/16 08:00 16:00 00:00 Intake Total 0 ml 1920 ml Balance 0 ml 1920 ml Assessment & Plan Problem List: (1) Schizophrenia, disorganized, 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 Further assessment of patient's progress notes feel that her diagnosis may be better defined as schizophrenia disorganized chronic f 20.1 Justification for Cont. Inpt. At this time patient would decompensate if placed in the lower level of care Discharge Planning To be determined Request HC Surrog/Guard Advoc?: Yes Grant Craig MD Jun 26, 2016 15:54
[2016-06-26 19:11] VITALS: BP 113/55; PULSE 104; RESP 18; TEMP 98.2; O2SAT 100
[2016-06-27] MEDS: INSULIN ASPART SUPPLEMENTAL SCALE SQ SCH ×4 (06:12→20:51)
[2016-06-27 06:42] VITALS: BP 106/56; PULSE 109; RESP 18; TEMP 98.5; O2SAT 98
[2016-06-27] MEDS: INSULIN DETEMIR 100 UNITS/ML VIAL SQ SCH (09:09)
[2016-06-27] MEDS: INSULIN ASPART 1,000 UNITS/10 ML VIAL SQ SCH ×3 (09:09→17:18)
[2016-06-27 09:15] VITALS: BP 129/61; PULSE 100
[2016-06-27] MEDS: risperiDONE 1 MG TAB PO SCH ×2 (09:18→20:51)
[2016-06-27] MEDS: DIVALPROEX SODIUM E.R. 500 MG TAB PO SCH ×2 (09:18→20:51)
[2016-06-27] MEDS: PANTOPRAZOLE SOD 20 MG DELAYED RELEASE TAB PO SCH (09:18)
[2016-06-27] MEDS: LISINOPRIL 5 MG TAB PO SCH (09:19)
[2016-06-27] MEDS ORDERED: LISI-519 PO (12:45)
[2016-06-27] MEDS ORDERED: PANT20 PO (12:45)
[2016-06-27] MEDS ORDERED: DEPA500T3 PO (12:45)
[2016-06-27] MEDS ORDERED: RISP1 PO (12:45)
--- NOTE | 2016-06-27 12:55 | HHI.DS ---
Psychiatry Discharge Summary Inpatient Psychiatric care?: Yes Advance Directive: No Mental Health AdvanceDirective: No Health Care Proxy: No Admission Admission Date Jun 13, 2016 at 10:00 Admission Diagnosis: (1) Schizophrenia, disorganized, chronic ICD Code: F20.[address] Herbert's H&P: The patient is a 71 year-old woman, Palestinian speaking, , apparently domiciled with her in [place], with past psychiatric history of for psychosis NOS, Schizophrenia, one documented hospitalization at [facility] in 2013 due to psychosis, she was to stabilize with Depakote and Risperdal then, one ER visit in October 2015, but discharged next day, medical history of diabetes or hypertension, who presents to [facility] via law enforcement under a Alves act. She was reportedly brought to [facility] with concerns of acute psychosis; however, due to acute nature of illness, she was subsequently referred to our hospital for eventual psychiatric admission. Patient was hold in the observation area of the ER due to UTI, increased blood pressure, elevated white blood cells, elevated blood sugar, ELYSIA and altered mental status. She had a brain CT scan without acute abnormal findings at this moment. Patient was evaluated in the med/psych unit alone with nurse in charge Riddhi, no collateral information available at this moment. On psychiatric evaluation patient is non-cooperative, she seems to be internally preoccupied, guarded, paranoid, she refuses to answer the questions and seems to be selectively mute. However, in the few occasions she decided to answer question she voices unintelligible words that don't make any sense either in [place] or Palestinian. She did say "my is crazy crazy crazy" and also she states in Palestinian "I don't like your shows, they are ugly". In spite of persistent reassurance and redirection patient refuses to cooperate. She is not agitated, no hyperactive, she does not seems to be catatonic, she has an irritable and angry affect, rather than flat and restricted. Tried to contact her for collateral information, he was called twice to the documented in the charge telephone number, but the person to answer the telephone and stated that this is a wrong number. On my examination today: Patient seen and examined. Chart reviewed. Case discussed with nursing staff. Per nursing staff, patient's mental status had been poor throughout the night. She reportedly received a dose of IM Ativan this morning and slept most of the day. Upon awakening this afternoon, the patient's mental status is reportedly much improved. She is alert and conversant in [place]. On my examination today, I do find the patient to be awake and alert. She does indeed appear to have good facility with [place]. She is fairly confused on my exam however, being oriented to person and hospital only. She denies audiovisual hallucinations but appears internally preoccupied. She describes her mood as "good." She denies any suicidal or homicidal ideation. Thought process seems fairly disorganized. Speech is rambling. Psychiatric interview remains somewhat limited. Past psychiatric history: Patient is unsure of her past psychiatric history. I do see that there is a chart history of psychosis with [address] Chicas. Family history: Patient unable to provide. Chemical dependency history: Patient says that she drinks in bed but she is apparently referring to the IV fluids that she is receiving. Toxicology and alcohol level were both negative on presentation here. Social history: Patient reports that she is with 7 children. Otherwise limited social history. Tobacco Use In Past 30 Days: No Tobacco Past 30 Days Alcohol Use: Never Hospital Course Patient's hospital course was uneventful, showing compliant with medications from admission. Her confusion and disorientation bedtime quite prominent also. Or behaviors were calm there is compliance with the medication, did denies suicidality homicidality or voices with us. At this time patient has been assessed by the [facility] in rehabilitation it appears there is a bed available for her there at this time. At this time patient reached a maximum benefit of this hospitalization that she'll be discharged today to that facility with Rx 1 month follow-up mental services through that facility Results Blood Pressure 129 / 61 Vital Signs Date Time Temp Pulse Resp B/P Pulse Ox O2 Delivery O2 Flow Rate FiO2 06/27/16 09:15 100 129/61 06/27/16 06:42 98.5 18 98 Depakote level 55 on 06/12 Summary of Procedures None done Pending results at discharge: No Medications # of Antipsychotic meds at D/C: 1 Approp Antipsych med options 1 - Minimum of three failed multiple trials of monotherapy. 2 - Documented plan to taper to monotherapy due to previous use of multiple meds OR cross-taper in progress at D/C. 3 - Documentation of augmentation of Clozapine. 4 - Justification other than those listed in allowable values 1-3, document here : Discharge Discharge Date: Jun 27, 2016 Discharge Diagnosis: (1) Schizophrenia, disorganized, chronic Diagnosis: Principal ICD Code: F20.1 Mental Status Exam at Disch Alert diffusely confused female, she is normal active, mood is euthymic to somewhat irritable with decreased range and intensity of her affect speech though some in Palestinian somewhat rapid and disorganized there are no auditory or visual hallucinations no delusions noted insight and judgment is poor cognition appears somewhat impaired Pt Condition on Discharge: Stable Discharge Disposition: Discharge to SNF Discharge Instructions Diet Instructions: As Tolerated, No Restrictions Activities you can perform: Regular-No Restrictions Scheduled Appointment: [facility] and rehabilitation Discharge Time > 30 minutes Discharge/Advance Care Plan Health Problems: (1) Schizophrenia, disorganized, chronic Goals to promote your health * To prevent worsening of your condition and complications * To maintain your health at the optimal level Directions to meet your goals Take your medications as prescribed Follow your dietary instruction Follow activity as directed Keep your appointments as scheduled Take your immunizations and boosters as scheduled If your symptoms worsen call your PCP, if no PCP go to Urgent Care Center or Emergency Room For 20/11 questions related to your inpatient stay or results of tests pending at discharge, please contact Dr. Grant Craig at Smoking is Dangerous to Your Health. Avoid second hand smoking Grant Craig MD Jun 27, 2016 12:55
[2016-06-27] MEDS: ACETAMINOPHEN 325 MG TAB PO PRN (17:29)
[2016-06-27 18:00] VITALS: BP 115/58; PULSE 104; RESP 18; TEMP 98.6; O2SAT 98
[2016-06-28] MEDS: INSULIN ASPART SUPPLEMENTAL SCALE SQ SCH ×4 (06:25→21:00)
[2016-06-28 06:37] VITALS: BP 137/63; PULSE 95; RESP 18; TEMP 98.8; O2SAT 96
[2016-06-28] MEDS: INSULIN ASPART 1,000 UNITS/10 ML VIAL SQ SCH ×3 (08:00→16:52)
[2016-06-28] MEDS: risperiDONE 1 MG TAB PO SCH ×2 (08:17→21:00)
[2016-06-28] MEDS: DIVALPROEX SODIUM E.R. 500 MG TAB PO SCH ×2 (08:17→21:00)
[2016-06-28] MEDS: PANTOPRAZOLE SOD 20 MG DELAYED RELEASE TAB PO SCH (08:17)
[2016-06-28] MEDS: INSULIN DETEMIR 100 UNITS/ML VIAL SQ SCH (08:17)
[2016-06-28] MEDS: LISINOPRIL 5 MG TAB PO SCH (08:20)
--- NOTE | 2016-06-28 12:26 | HHI.PYPN ---
Subjective Remarks Patient's discharge though scheduled for yesterday fell through due to lack of documentation and acceptance by the [facility]. Thus we'll place discharge on hold for now and continue caring for patient. Patient calm cooperative and pleasant with us continues diffusely confused. Compliant medications. Hopefully the confusion with the placement Resolved Review of Systems Except as stated in HPI: all other systems reviewed are Neg Objective Alert: Yes [place]: Person, Place (partially), Situation Mood: Agitated, Calm Affect: Labile Memory Intact: Immediate, Recent, Comment (unable to assess ) Hallucinations: Other (she denies) Delusions: No Delusion Type: Other (none elicited) Suicidal: Ideation (she denies) Homicidal: Ideation (she denies) Insight/Judgement Very poor Vitals/IOs Vital Signs Date Time Temp Pulse Resp B/P Pulse Ox O2 Delivery O2 Flow Rate FiO2 06/28/16 06:37 98.8 95 18 137/63 96 Intake and Output 06/27/16 06/27/16 06/28/16 08:00 16:00 00:00 Intake Total 1320 ml Balance 1320 ml Assessment & Plan Problem List: (1) Schizophrenia, disorganized, 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 For now patient to continue being cared for by us Justification for Cont. Inpt. Without having appropriate placement for this lady she would significantly deteriorate Discharge Planning To be determined Request HC Surrog/Guard Advoc?: Yes Grant Craig MD Jun 28, 2016 12:26
[2016-06-28] MEDS: LORazepam 0.5 MG TAB PO PRN (21:00)
[2016-06-28 22:53] VITALS: BP 115/56; PULSE 104; RESP 18; TEMP 98; O2SAT 98
[2016-06-29 06:00] VITALS: BP 118/66; PULSE 111; RESP 18; TEMP 98.5; O2SAT 96
[2016-06-29] MEDS: INSULIN ASPART SUPPLEMENTAL SCALE SQ SCH ×2 (06:24→11:14)
[2016-06-29] MEDS: INSULIN ASPART 1,000 UNITS/10 ML VIAL SQ SCH ×2 (08:00→12:00)
[2016-06-29] MEDS: DIVALPROEX SODIUM E.R. 500 MG TAB PO SCH (09:14)
[2016-06-29] MEDS: PANTOPRAZOLE SOD 20 MG DELAYED RELEASE TAB PO SCH (09:15)
[2016-06-29] MEDS: risperiDONE 1 MG TAB PO SCH (09:15)
[2016-06-29] MEDS: ACETAMINOPHEN 325 MG TAB PO PRN (09:16)
[2016-06-29] MEDS: LISINOPRIL 5 MG TAB PO SCH (09:17)
[2016-06-29] MEDS: INSULIN DETEMIR 100 UNITS/ML VIAL SQ SCH (09:18)
--- NOTE | 2016-06-29 12:36 | PD.PN.STU ---
Subjective Remarks "I just took a bath. I feel better today". Objective Vitals Vital Signs Date Time Temp Pulse Resp B/P Pulse Ox O2 Delivery O2 Flow Rate FiO2 06/29/16 06:00 98.5 111 18 118/66 96 06/28/16 22:53 98.0 104 18 115/56 98 I/O 06/28/16 06/28/16 06/28/16 06/29/16 06/29/16 06/29/16 07:00 15:00 23:00 07:00 15:00 23:00 Intake Total 1080 ml 240 ml 0 ml Balance 1080 ml 240 ml 0 ml Intake Oral 1080 ml 240 ml 0 ml # Voids 2 1 2 Objective Remarks Patient walking around unit in night gown, appears comfortable, in no acute distress. She is able to answer questions appropriately. A/P Assessment and Plan Patient continues to be stable on unit. Will follow. Nehal Parikh M3 Jun 29, 2016 12:36
== END 2016-06-29 14:50 | DRG 885 ==
LOC: H4EA 10:00 → H250 06-23 15:45
PROVIDERS: ADMIT Psychiatry & Neurology Psychiatry; ATTEND Psychiatry & Neurology Psychiatry
DX: F20.1 Disorganized schizophrenia (principal); N17.9 Acute kidney failure, unspecified; E87.0 Hyperosmolality and hypernatremia; N39.0 Urinary tract infection, site not specified; E11.65 Type 2 diabetes mellitus with hyperglycemia; R62.7 Adult failure to thrive; R74.0 Nonspecific elevation of levels of transaminase and lactic acid dehydrogenase [LDH]; F03.90 Unspecified dementia, unspecified severity, without behavioral disturbance, psychotic disturbance, mood disturbance, and anxiety; I10 Essential (primary) hypertension; Z79.84 Long term (current) use of oral hypoglycemic drugs
CPT/HCPCS: 80048; 80053; 80061; 80164; 82550; 82607; 82746; 82948; 83036; 83735; 84436; 84443; 85025; J0696; J1815; J2060; J3480; J7070